=== PATIENT | female | born 1975 | race Caucasian/White ===

== ENCOUNTER 2020-06-14 09:38 | Inpatient (IN) | payer SELFPAY ==
[2020-06-14] VITALS (37 sets, daily range): BP systolic 121–158; BP diastolic 68–95; PULSE 76–134; RESP 12–98; TEMP 36.3–36.7; O2SAT 95–100
[2020-06-14] MEDS: Normal Saline Flush 10 ML SYR IVP ×2 (09:55→22:08)
[2020-06-14 10:12] LABS: Abs Immature Grans 0.02 10^3/uL (0.0-0.06); Absolute Basophil Count 0.04 10^3/uL (0.0-0.2); Absolute Eosinophil Count 0.07 10^3/uL (0.0-0.7); Absolute Lymphocyte Count 0.87 10^3/uL (1.2-3.4); Absolute Monocyte Count 0.56 10^3/uL (0.1-0.8); Absolute Neutrophil Count 4.53 10^3/uL (1.2-6.7); Basophils % 0.7; Eosinophils % 1.1; HCT 41.7 % (36.0-46.0); HGB 14.4 g/dL (11.2-15.7); Immature Grans % 0.3; Lymphocytes % 14.3; MCH 33.9 pg (27.0-33.0); MCHC 34.5 % (32.0-36.0); MCV 98.1 fL (80-95); MPV 9.5 fL (8.0-11.0); Monocytes % 9.2; Neutrophils % 74.4; Nucleated RBC 0 %; Platelet Count 134 10^3/uL (130-400); RBC 4.25 10^6/uL (3.93-5.22); RDW 12.9 % (11.7-14.6); WBC 6.09 10^3/uL (4.4-10.8)
[2020-06-14] MEDS: Normal Saline 1,000 ML 1000 ML IV ×2 (10:15→12:37)
--- NOTE | 2020-06-14 10:15 | DI.US_ITS ---
EXAM: US ABDOMEN LIMITED CLINICAL HISTORY: upper abd pain, r/o cholecystitis TECHNIQUE: Ultrasound abdomen performed using standard protocol. COMPARISON: No exams were available for comparison FINDINGS: LIVER: Increased echogenicity, consistent with fatty infiltration. No focal liver lesions are seen.. GALLBLADDER: No evidence of cholelithiasis. No evidence of wall thickening. No pericholecystic fluid identified. STERN'S SIGN: Negative. BILIARY SYSTEM: No intrahepatic or extrahepatic biliary ductal dilation. KIDNEYS: Right kidney normal in size. No evidence of renal calculi. No evidence of hydronephrosis. N o renal mass or cyst identified. PANCREAS: Thickened, edematous pancreatic head. fluid around the head of the pancreas. ABDOMINAL AORTA AND IVC: Visualized portions normal caliber. IMPRESSION: Findings consistent with pancreatitis. No evidence of gallstones or acute cholecystitis. No biliary dilatation. DATA REPOSITORY:
[2020-06-14] MEDS: Ondansetron 4 MG/2 ML VIAL IVP ×3 (10:17→22:03)
--- NOTE | 2020-06-14 10:20 | W.ED.GENAD ---
Discharge Plan Disposition Patient Disposition: [facility] INPATIENT Condition: Fair Discharge Details Clinical Impression: Acute pancreatitis, Alcohol abuse Primary Care Provider: None,None ED Provider: Kaleigh Jimenez Home Meds and New Rx's Prescriptions: No Action venlafaxine 75 mg Capsule,Extended Release 24hr 75 mg PO DAILY RF: 0 Medical Decision Making 949 -- 45yo F with a history of anxiety presents with epigastric pain and vomiting that started this morning. Heart rate 130s on arrival. Patient appears uncomfortable and is dry heaving vomiting in the room. She has significant epigastric and left upper quadrant tenderness. She also admits to mid back pain. Differential diagnosis includes cholecystitis, biliary colic, pancreatitis, gastritis, PUD, AAA, bowel obstruction. We will place an IV, screening labs, urinalysis, urine test, EKG, CT chest abdomen pelvis, gallbladder ultrasound. She was already given Zofran and is now dry heaving. Will give Phenergan, Pepcid IV, GI cocktail Carafate p.o. 1100 -- Labs reviewed. Normal white blood cell count. Potassium 3.2, will replete. AST 236. ALT 124. Lipase 4379. Patient states she drinks 3 to 4 glasses of wine daily for several years and states she is an alcoholic. She states her last drink was yesterday. We will give a dose of morphine. We will proceed with gallbladder ultrasound and CT to rule out pancreatitis versus gallstone pancreatitis. Patient now states to nursing staff that she drinks liquor throughout the day and wine at nighttime. She now states her last drink was this morning. She was unable to take oral potassium. Will order IV potassium. Will order Ativan as needed for potential for alcohol withdrawal. CT chest negative. CT abdomen pelvis notes findings consistent with pancreatitis with severe hepatic steatosis. No obvious cholelithiasis. 1145 -- Case discussed with hospitalist who accepts patient for admission. 1245 -- patient states pain is returning. Her vitals are within normal limits. She was given 1 dose of Ativan per nursing for potential withdrawal symptoms but denies any complaints of restlessness and she did not appear diaphoretic at this time. Medical Records Medical records reviewed: Yes I reviewed the patient's medical records. Imaging Data Radiologic Study: Radiologist's impression: CT THORAX ABD/PEL CTA CLINICAL HISTORY: upper abd pain, rad to back. TECHNIQUE: Imaging Protocol: Axial computed tomography images with coronal and sagittal reformatted images were created and reviewed CONTRAST MATERIAL: Intravenous: Omnipaque 350 Contrast volume:100 in ml Oral: No COMPARISON: No exams were available for comparison FINDINGS: CHEST: Heart and great vessels: There is no evidence pulmonary emboli or aortic dissection. There are no pleural or pericardial effusions. Adenopathy: None. Lungs: No pulmonary nodules, mass or infiltrate. Bones: Degenerative disc changes midthoracic spine. There is no evidence of spine or rib fracture. ABDOMEN/PELVIS: Liver: Extreme hepatic steatosis. No measurable mass. Gallbladder: No calcified stones, no wall thickening, no abnormal distention.No pericholecystic fluid. Biliary tract: No radiodense calculus, no dilation. Pancreas: Fluid is noted around the pancreas. There is abnormal low density in the head of the pancreas, consistent with pancreatitis. No pseudocyst is seen. There is no pancreatic ductal dilatation. Spleen: Normal. Kidneys: Normal size, contour and axis. No radiodense stones. No hydronephrosis. No masses seen. No perinephric collection. Adrenal glands: No masses seen. Abdominal Aorta: Non-dilated. No atherosclerotic changes. Bowel: No obstruction or bowel wall thickening. Normal quantity of stool. Bladder: No gross wall thickening, focal mass or stones. Peritoneal cavity: Small amount of pelvic fluid. No free air. Bones: No suspicious lesions or fractures. Reproductive organs: Retroverted uterus with IUD in place. Lymph nodes: No pathologically enlarged lymph nodes. Impression: Negative chest CT. Findings consistent with pancreatitis particularly involving the head. Severe hepatic steatosis. Lab Data Lab results reviewed: Yes I reviewed the patient's lab results. Labs: Laboratory Tests Range/Units 06/14/20 06/14/20 06/14/20 09:55 09:55 09:55 WBC (4.4-10.8) 10^3/uL 6.09 RBC (3.93-5.22) 10^6/uL 4.25 Hgb (11.2-15.7) g/dL 14.4 Hct (36.0-46.0) % 41.7 MCV (80-95) fL 98.1 H MCH (27.0-33.0) pg 33.9 H MCHC (32.0-36.0) % 34.5 RDW (11.7-14.6) % 12.9 Plt Count (130-400) 10^3/uL 134 MPV (8.0-11.0) fL 9.5 Immature Gran % 0.3 Neutrophils % 74.4 Lymphocytes % 14.3 Monocytes % 9.2 Eosinophils % 1.1 Basophils % 0.7 Nucleated RBC % % 0 Absolute Neutrophils (1.2-6.7) 10^3/uL 4.53 Absolute Lymphocytes (1.2-3.4) 10^3/uL 0.87 L Absolute Monocytes (0.1-0.8) 10^3/uL 0.56 Absolute Eosinophils (0.0-0.7) 10^3/uL 0.07 Absolute Basophils (0.0-0.2) 10^3/uL 0.04 Sodium (136-145) mmol/L 139 Potassium (3.5-5.1) mmol/L 3.2 L Chloride (98-107) mmol/L 97 L Carbon Dioxide (21.0-32.0) mmol/L 25.8 Anion Gap (3-11) mmol/L 16.2 H BUN (7-18) mg/dL 9 Creatinine (0.55-1.02) mg/dL 0.7 Estimated GFR/1.73 m2 (mL/min/1.73m2) >= 60.00 Glucose (74-106) mg/dL 116 H Calcium (8.5-10.1) mg/dL 10.0 Total Bilirubin (0.2-1.0) mg/dL 0.8 AST (15-37) U/L 236 H ALT (14-59) U/L 124 H Alkaline Phosphatase (46-116) U/L 88 Troponin I (<0.06) ng/mL < 0.05 Total Protein (6.4-8.2) g/dL 8.0 Albumin (3.4-5.0) g/dL 4.1 Lipase (73-393) U/L 4379 H Ethyl Alcohol (<3) mg/dL Range/Units 06/14/20 09:55 WBC (4.4-10.8) 10^3/uL RBC (3.93-5.22) 10^6/uL Hgb (11.2-15.7) g/dL Hct (36.0-46.0) % MCV (80-95) fL MCH (27.0-33.0) pg MCHC (32.0-36.0) % RDW (11.7-14.6) % Plt Count (130-400) 10^3/uL MPV (8.0-11.0) fL Immature Gran % Neutrophils % Lymphocytes % Monocytes % Eosinophils % Basophils % Nucleated RBC % % Absolute Neutrophils (1.2-6.7) 10^3/uL Absolute Lymphocytes (1.2-3.4) 10^3/uL Absolute Monocytes (0.1-0.8) 10^3/uL Absolute Eosinophils (0.0-0.7) 10^3/uL Absolute Basophils (0.0-0.2) 10^3/uL Sodium (136-145) mmol/L Potassium (3.5-5.1) mmol/L Chloride (98-107) mmol/L Carbon Dioxide (21.0-32.0) mmol/L Anion Gap (3-11) mmol/L BUN (7-18) mg/dL Creatinine (0.55-1.02) mg/dL Estimated GFR/1.73 m2 (mL/min/1.73m2) Glucose (74-106) mg/dL Calcium (8.5-10.1) mg/dL Total Bilirubin (0.2-1.0) mg/dL AST (15-37) U/L ALT (14-59) U/L Alkaline Phosphatase (46-116) U/L Troponin I (<0.06) ng/mL Total Protein (6.4-8.2) g/dL Albumin (3.4-5.0) g/dL Lipase (73-393) U/L Ethyl Alcohol (<3) mg/dL 120.3 ECG Data Attestation: I personally reviewed and interpreted this ECG (s) as follows: Interpretation: Rate of 95, sinus, no acute ST elevation or depression. AK 152. QRS 92. QTc 492. HPI General Mode of arrival: ambulatory. Date/Time Provider Initiated Documentation: 06/14/20 09:57. Limitations to Documentation: no limitations. Information obtained by: patient. HPI Narrative: Patient is a 45-year-old female with no history of previous abdominal surgery who presents to the ED with a complaint of epigastric pain and vomiting since this morning. Patient states she felt nauseous with some pain upon awakening this morning but became much worse after going to work. Patient states she drank milk and water this morning but has since vomited this up. She states she has vomited approximately 2 times which is mainly been bile and liquid. She states her pain is burning in the epigastrium but also admits to some mid back pain. She denies any radiation of pain from the abdomen straight through to the back. She denies any radiation of pain up to her chest, shortness of breath, cough, fever, diarrhea or urinary symptoms. She states she had normal bowel movement at work this morning without bleeding. She denies any recent travel, recent biotics or recent known exposure to coronavirus. Related Data Home Medications Medication Instructions Recorded Confirmed venlafaxine 75 mg PO DAILY 06/14/20 06/14/20 Allergies Allergy/AdvReac Type Severity Reaction Status Date / Time No Known Allergies Allergy Unverified 06/14/20 09:41 General Stated Complaint: Abd Prob KIERSTEN: 3 Review of Systems All systems reviewed & are unremarkable except as noted in HPI and below Constitutional Constitutional: Reports as per HPI, Denies chills and Denies fever(s) Eyes Eyes: Denies blurry vision ENT Ears, Nose, Mouth, and Throat: Denies dizziness, Denies sore throat and Denies throat swelling Cardiovascular Cardiovascular: Denies chest pain and Denies dyspnea Respiratory Respiratory: Denies cough and Denies dyspnea Gastrointestinal Gastrointestinal: Reports abdominal pain, Denies diarrhea and Denies vomiting Genitourinary Genitourinary: Denies hematuria and Denies dysuria Musculoskeletal Musculoskeletal: Denies back pain and Denies numbness Integumentary/Breasts Skin/Breast: Denies lesions and Denies rash Neurologic Neurologic: Denies dizziness, Denies localized weakness and Denies numbness Allergic/Immunologic Allergic/Immunologic: Denies throat swelling [facility] Medical History (Updated 06/14/20 @ 12:50 by Kaleigh Jimenez DO) Alcohol abuse Anxiety Surgical History (Updated 06/14/20 @ 11:02 by Kaleigh Jimenez DO) No significant past surgical history Social History Smoking/Tobacco Use Status: Current every day Smoking risk assessment performed?: Yes Alcohol Intake: current Alcohol Intake frequency: 0-2 drinks per day Alcohol type: wine Drug use: Occasionally Substance use type: marijuana Do you feel safe at home: Yes Do you feel safe in your relationship?: Yes Exam Const General: cooperative and no acute distress HENMT Head: normal to inspection Face and sinus: normal facial exam Eyes General: appearance normal, both eyes and all related structures EOM: EOM intact bilaterally Neck Neck: normal visual inspection and No submandibular swelling Lymphatic: no lymphadenopathy noted Chest Chest: normal inspection of the chest and no tenderness Resp Effort & Inspection: normal respiratory effort and able to speak in complete sentences Auscultation: clear to auscultation bilaterally Cardio Rate: regular rate Rhythm: regular rhythm GI Inspection: normal to inspection Palpation: soft, not firm, not rigid and tender in the epigastrum, in the LUQ and in the RUQ Auscultation: normal bowel sounds Skin General skin exam: no rashes or lesions noted Neuro General: patient alert, patient awake and patient oriented x3 Cognition: normal cognition Speech: speech normal Motor: muscle tone normal throughout Sensory Exam: no sensory deficits noted Extrem General: normal to inspection, full ROM, capillary refill normal, no calf tenderness bilaterally and no edema Psych Appearance: grossly normal Mental Status: mental status grossly normal Speech and Movement: speech and movement normal Affect: normal affect Course Vital Signs Vital signs: Vital Signs Temperature 97.9 F 06/14/20 09:41 Pulse 134 H 06/14/20 09:41 Respiratory Rate 98 H 06/14/20 09:41 Blood Pressure 137/91 H 06/14/20 09:41 Pulse Oximetry 99 06/14/20 09:41 Temperature 97.9 F 06/14/20 09:41 Temperature Source Temporal Artery Scan 06/14/20 09:41 Pulse 134 H 06/14/20 09:41 Respiratory Rate 98 H 06/14/20 09:41 Respiratory Effort Non-Labored 06/14/20 09:48 Blood Pressure 137/91 H 06/14/20 09:41 Blood Pressure Position Sitting 06/14/20 09:41 Pulse Oximetry 99 06/14/20 09:41 Oxygen Delivery Method Room Air 06/14/20 09:41 Oxygen Flow Rate 0 06/14/20 09:41 Pain Level 8 06/14/20 10:03 Lab/Test Results Lab/Test Results: Laboratory Tests Range/Units 06/14/20 09:55 WBC (4.4-10.8) 10^3/uL 6.09 RBC (3.93-5.22) 10^6/uL 4.25 Hgb (11.2-15.7) g/dL 14.4 Hct (36.0-46.0) % 41.7 MCV (80-95) fL 98.1 H MCH (27.0-33.0) pg 33.9 H MCHC (32.0-36.0) % 34.5 RDW (11.7-14.6) % 12.9 Plt Count (130-400) 10^3/uL 134 MPV (8.0-11.0) fL 9.5 Immature Gran % 0.3 Neutrophils % 74.4 Lymphocytes % 14.3 Monocytes % 9.2 Eosinophils % 1.1 Basophils % 0.7 Nucleated RBC % % 0 Absolute Neutrophils (1.2-6.7) 10^3/uL 4.53 Absolute Lymphocytes (1.2-3.4) 10^3/uL 0.87 L Absolute Monocytes (0.1-0.8) 10^3/uL 0.56 Absolute Eosinophils (0.0-0.7) 10^3/uL 0.07 Absolute Basophils (0.0-0.2) 10^3/uL 0.04
[2020-06-14 10:28] LABS: ALT 124 U/L (14-59); AST 236 U/L (15-37); Albumin 4.1 g/dL (3.4-5.0); Alkaline Phosphatase 88 U/L (46-116); Anion Gap 16.2 mmol/L (3-11); BUN 9 mg/dL (7-18); Bilirubin, Total 0.8 mg/dL (0.2-1.0); CO2 25.8 mmol/L (21.0-32.0); CREATININE 0.7 mg/dL (0.55-1.02); Chloride 97 mmol/L (98-107); Glucose 116 mg/dL (74-106); Potassium 3.2 mmol/L (3.5-5.1); Sodium 139 mmol/L (136-145)
[2020-06-14 10:45] LABS: Lipase 4379 U/L (73-393)
[2020-06-14] MEDS: Sucralfate 1 GM TAB PO (11:00)
[2020-06-14] MEDS: FAMOTIDINE 20 MG/50 ML BAG 200 MG IVPB (11:04)
--- NOTE | 2020-06-14 11:15 | RT.EKG_ITS ---
APPROVED REPORT Exam: Resting ECG Patient Location: E HR:95 bpm ECG Measurements Heart Rate 95 AXIS HI 152 P 72 QRSd 92 QRS 60 QT 390 T -4 QTc 492 Conclusion Sinus rhythm...normal P axis, V-rate 60- 99 I have reviewed and interpreted ECG and agree with software generated interpretation.
[2020-06-14 11:22] LABS: Troponin I < 0.05 ng/mL (<0.06)
[2020-06-14] MEDS: LORazepam 2 MG/ML VIAL 0.5 MG IVP (11:30)
--- NOTE | 2020-06-14 12:00 | DI.CT_ITS ---
EXAM: CT THORAX ABD/PEL CTA CLINICAL HISTORY: upper abd pain, rad to back. TECHNIQUE: Imaging Protocol: Axial computed tomography images with coronal and sagittal reformatted images were created and reviewed CONTRAST MATERIAL: Intravenous: Omnipaque 350 Contrast volume:100 in ml Oral: No COMPARISON: No exams were available for comparison FINDINGS: CHEST: Heart and great vessels: There is no evidence pulmonary emboli or aortic dissection. There are no pleural or pericardial effusions. Adenopathy: None. Lungs: No pulmonary nodules, mass or infiltrate. Bones: Degenerative disc changes midthoracic spine. There is no evidence of spine or rib fracture. ABDOMEN/PELVIS: Liver: Extreme hepatic steatosis. No measurable mass. Gallbladder: No calcified stones, no wall thickening, no abnormal distention.No pericholecystic fluid . Biliary tract: No radiodense calculus, no dilation. Pancreas: Fluid is noted around the pancreas. There is abnormal low density in the head of the pancr eas, consistent with pancreatitis. No pseudocyst is seen. There is no pancreatic ductal dilatation. Spleen: Normal. Kidneys: Normal size, contour and axis. No radiodense stones. No hydronephrosis. No masses seen. No perinephric collection. Adrenal glands: No masses seen. Abdominal Aorta: Non-dilated. No atherosclerotic changes. Bowel: No obstruction or bowel wall thickening. Normal quantity of stool. Bladder: No gross wall thickening, focal mass or stones. Peritoneal cavity: Small amount of pelvic fluid. No free air. Bones: No suspicious lesions or fractures. Reproductive organs: Retroverted uterus with IUD in place. Lymph nodes: No pathologically enlarged lymph nodes. Impression: Negative chest CT. Findings consistent with pancreatitis particularly involving the head. Severe hepatic steatosis. RADIATION DOSE DELIVERED: 867.3mGy.cm Total DLP DATA REPOSITORY: All CT scans at this facility are submitted to the National Radiology Data Registry (NRDR) Dose Index Registry (DIR) with the [employer] (ACR). RADIATION OPTIMIZATION: All CT scans at this facility use at least one of these dose optimization te chniques: automated exposure control; mA and/or kV adjustment per patient size (includes targeted exa ms where dose is matched to clinical indication); or iterative reconstruction.
[2020-06-14] MEDS: Omnipaque 350 MG/ML 100 ML BTL IJ (12:11)
[2020-06-14] MEDS: Normal Saline - Diluent 50 ML VIAL IV (12:11)
[2020-06-14] MEDS: POTASSIUM CHLORIDE 20 MEQ/100 ML BAG 50 MEQ IVPB (12:37)
[2020-06-14 12:44] LABS: ETHANOL BLOOD 120.3 mg/dL (<3)
[2020-06-14 13:01] LABS: C-Reactive Protein 0.22 mg/dL (0.0-0.3)
[2020-06-14 13:01] LABS: Source Nasal/Nares
[2020-06-14 13:07] LABS: Bilirubin Negative (Negative); Blood Negative (Negative); Clarity Clear (Clear); Glucose Negative (Negative); Ketones 80 mg/dL (Negative); Leukocyte Esterase Negative (Negative); Nitrite Negative (Negative); Specific Gravity 1.015 (1.005-1.025)
[2020-06-14 13:17] LABS: Triglyceride 86 mg/dL (<150)
[2020-06-14 13:24] LABS: *AMPHETAMINES SCREEN URINE Negative (Negative); *BARBITURATES SCREEN URINE Negative (Negative); *BENZODIAZEPINES SCREEN URINE Negative (Negative); Cannabinoids THC Positive (Negative); Cocaine Screen,Urine Negative (Negative); METHADONE URINE SCREEN Negative (Negative); OPIATES URINE SCREEN Positive (Negative)
[2020-06-14 13:29] LABS: Tricyclic Antidepressants Negative (Negative)
[2020-06-14 13:29] LABS: Procalcitonin < 0.1 ng/mL
[2020-06-14] MEDS: MULTIVITAMIN 10 ML, THIAMINE 100 MG, FOLIC ACID 1 MG in DEXTROSE 5%-0.45% SALINE 1,000 ML 200 ML IV (14:18)
[2020-06-14 15:23] LABS: COVID-19 PCR Negative (Negative)
--- NOTE | 2020-06-14 16:23 | HPE_ITS ---
Date of service: 06/14/20 Time of Service: 16:00 Assessment and Plan Assessment and plan (1) Acute alcoholic pancreatitis: Status: Acute Assessment and plan: Continue aggressive IVF. NPO. Monitor CRP. No role for abx at this time. Serial physical exams. Monitor in the ICU. Consider surgical consult. Pain control. (2) Alcoholic hepatitis without ascites: Status: Acute Assessment and plan: Checking INR to estimate discriminant function score. (3) Alcohol withdrawal: Status: Acute Assessment and plan: I do not think the patient is a good candidate for phenobarbital as we are suspecting alcoholic hepatitis. For now we will treat her with ativan per CIWA scale. Monitor in the ICU. Banana bag/ativan. Discussion re AA/rehab began today. (4) Alcohol intoxication: Status: Acute Assessment and plan: we will be careful with benzodiazepines to ensure the patient is not oversedated. (5) Hepatic steatosis: Status: Acute Assessment and plan: New diagnosis. May be the explanation behind the transaminitis. (6) Alcoholic ketoacidosis: Status: Acute Assessment and plan: IV hydration. (7) Hypokalemia: Status: Acute Assessment and plan: Repleted. Check mag. (8) DVT prophylaxis: Status: Acute Assessment and plan: SC lovenox (9) Discharge planning issues: Status: Acute Assessment and plan: Full code Admit to the ICU. Total Critical Care Time 45 minutes. History of Present Illness History of Present Illness Chief Complaint: abdominal pain, nausea, vomiting since this morning Narrative: Ms Hall is a 45 year old female with PMHx of anxiety and alcohol abuse, who last drank this morning and denies h/o alcohol withdrawal other than shaking and, specifically, alcohol withdrawal seizures, who presented to [facility] ED today c/o epigastri pain, nausea, and vomiting since this morning. Her ED workup revealed acute pancreatitis, especially in the head of the pancreas, and severe hepatic steatosis. She does have transaminitis. THere was no evidence of cholelithiasis/choledocholithiasis. Triglyceride level was normal. The patient showed signs of alcohol withdrawal in the ED and was medicated with IV ativan. Hospitalists were asked to take over care. Review of Systems All systems reviewed & are unremarkable except as noted in HPI and below [facility] Medical History (Updated 06/14/20 @ 17:04 by Janie Fishman MD) Alcohol abuse Anxiety Eczema Surgical History (Updated 06/14/20 @ 11:02 by Kaleigh Jimenez DO) No significant past surgical history Family History (Updated 06/14/20 @ 16:29 by Janie Fishman MD) Father Heart disease [place] at age of 68 Maternal Grandmother Cancer ovarian cancer Maternal Grandfather Cancer unknown primary Social History (Updated 06/14/20 @ 16:29 by Janie Fishman MD) Smoking/Tobacco Use Status: Current every day Smoking risk assessment performed?: Yes Alcohol Intake: current Alcohol Intake frequency: 3 or more drinks per day Alcohol type: wine and other Counseling given: Yes Counseling provided: provider counseling and support program Drug use: Occasionally Substance use type: marijuana Details: past cocaine Do you feel safe at home: Yes Do you feel safe in your relationship?: Yes Meds Home Medications and Allergies Allergies Allergy/AdvReac Type Severity Reaction Status Date / Time No Known Allergies Allergy Unverified 06/14/20 09:41 Home Medications Medication Instructions Recorded Confirmed Type venlafaxine 75 mg PO DAILY 06/14/20 06/14/20 History Exam Narrative Exam Narrative: General: Pleasant very tremulous middle-aged female who smells ketotic, A&Ox3, cooperative, appears uncomfortable. Dry heaving. Neurological: A&Ox3, tremulous, no focal deficits Psychiatric: Appropriate speech pattern/content Skin: Eczematous patches HEENT: Atraumatic, normocephalic, EOMI, dry MM, clear oropharynx, no subman dibular or cervical lymphadenopathy, no goiter or JVD Cardiovascular: RRR, mildly tachycardic Lungs: CTAB Gastrointestinal: soft, very tender in epigastrium Genitourinary: deferred Extremities: no edema BLEs Results Imaging Additional studies: US abdomen: Findings consistent with pancreatitis. No evidence of gallstones or acute cholecystitis. No biliary dilatation. CT chest/abdomen/pelvis: Negative chest CT. Findings consistent with pancreatitis particularly involving the head. Severe hepatic steatosis. Labs Result diagrams: 06/14/20 09:55 06/14/20 09:55 Labs: Laboratory Results - last 24 hr 06/14/20 06/14/20 06/14/20 09:55 09:55 09:55 WBC 6.09 RBC 4.25 Hgb 14.4 Hct 41.7 MCV 98.1 H MCH 33.9 H MCHC 34.5 RDW 12.9 Plt Count 134 MPV 9.5 Immature Gran % 0.3 Neutrophils % 74.4 Lymphocytes % 14.3 Monocytes % 9.2 Eosinophils % 1.1 Basophils % 0.7 Nucleated RBC % 0 Absolute Neutrophils 4.53 Absolute Lymphocytes 0.87 L Absolute Monocytes 0.56 Absolute Eosinophils 0.07 Absolute Basophils 0.04 Sodium 139 Potassium 3.2 L Chloride 97 L Carbon Dioxide 25.8 Anion Gap 16.2 H BUN 9 Creatinine 0.7 Estimated GFR/1.73 m2 >= 60.00 Glucose 116 H Calcium 10.0 Total Bilirubin 0.8 AST 236 H ALT 124 H Alkaline Phosphatase 88 Troponin I < 0.05 C-Reactive Protein Total Protein 8.0 Albumin 4.1 Triglycerides Lipase 4379 H Procalcitonin Urine Color Urine Clarity Urine pH Ur Specific [place] Urine Protein Urine Ketones Urine Blood Urine Nitrite Urine Bilirubin Urine Urobilinogen Ur Leukocyte Esterase Urine Glucose Urine Opiates Screen Urine Methadone Screen Ur Barbiturates Screen Ur Tricyclics Screen Ur Amphetamines Screen U Benzodiazepines Scrn Urine Cocaine Screen Ur THC Screen Ethyl Alcohol COVID-19 Source SARS-CoV-2 (PCR) 06/14/20 06/14/20 06/14/20 09:55 09:55 09:55 WBC RBC Hgb Hct MCV MCH MCHC RDW Plt Count MPV Immature Gran % Neutrophils % Lymphocytes % Monocytes % Eosinophils % Basophils % Nucleated RBC % Absolute Neutrophils Absolute Lymphocytes Absolute Monocytes Absolute Eosinophils Absolute Basophils Sodium Potassium Chloride Carbon Dioxide Anion Gap BUN Creatinine Estimated GFR/1.73 m2 Glucose Calcium Total Bilirubin AST ALT Alkaline Phosphatase Troponin I C-Reactive Protein 0.22 Total Protein Albumin Triglycerides 86 Lipase Procalcitonin < 0.1 Urine Color Urine Clarity Urine pH Ur Specific [place] Urine Protein Urine Ketones Urine Blood Urine Nitrite Urine Bilirubin Urine Urobilinogen Ur Leukocyte Esterase Urine Glucose Urine Opiates Screen Urine Methadone Screen Ur Barbiturates Screen Ur Tricyclics Screen Ur Amphetamines Screen U Benzodiazepines Scrn Urine Cocaine Screen Ur THC Screen Ethyl Alcohol 120.3 COVID-19 Source SARS-CoV-2 (PCR) 06/14/20 06/14/20 06/14/20 12:50 12:55 12:55 WBC RBC Hgb Hct MCV MCH MCHC RDW Plt Count MPV Immature Gran % Neutrophils % Lymphocytes % Monocytes % Eosinophils % Basophils % Nucleated RBC % Absolute Neutrophils Absolute Lymphocytes Absolute Monocytes Absolute Eosinophils Absolute Basophils Sodium Potassium Chloride Carbon Dioxide Anion Gap BUN Creatinine Estimated GFR/1.73 m2 Glucose Calcium Total Bilirubin AST ALT Alkaline Phosphatase Troponin I C-Reactive Protein Total Protein Albumin Triglycerides Lipase Procalcitonin Urine Color Yellow Urine Clarity Clear Urine pH 6.0 Ur Specific [place] 1.015 Urine Protein Negative Urine Ketones 80 H Urine Blood Negative Urine Nitrite Negative Urine Bilirubin Negative Urine Urobilinogen 1.0 H Ur Leukocyte Esterase Negative Urine Glucose Negative Urine Opiates Screen Positive A Urine Methadone Screen Negative Ur Barbiturates Screen Negative Ur Tricyclics Screen Negative Ur Amphetamines Screen Negative U Benzodiazepines Scrn Negative Urine Cocaine Screen Negative Ur THC Screen Positive A Ethyl Alcohol COVID-19 Source Nasal/nares SARS-CoV-2 (PCR) Negative Last Vital Signs Temp 36.6 C 06/14/20 14:50 Pulse 82 06/14/20 14:50 Resp 12 06/14/20 16:15 BP 138/85 06/14/20 14:50 Pulse Ox 100 06/14/20 14:50 COVID-19 Screening Have you, or household traveled for leisure in last 14 days?: No Had IN PERSON contact w/suspected or confirmed C-19 person: No
[2020-06-14] MEDS: Ketorolac 30 MG/ML VIAL IVP (16:28)
[2020-06-14] MEDS: LORazepam 1 MG TAB PO/SL ×2 (16:28→19:59)
[2020-06-14] MEDS: Pantoprazole 40 MG VIAL IVP (16:29)
[2020-06-14] MEDS: Enoxaparin 40 MG/0.4 ML SYR SC (16:30)
[2020-06-14] MEDS: Venlafaxine 37.5 MG CAPCR 75 MG PO (16:55)
[2020-06-14 17:48] LABS: INR 1.1 (0.9-1.1); Prothrombin Time 10.8 sec (9.3-11.0)
[2020-06-14 18:51] LABS: Magnesium 1.4 mg/dL (1.8-2.4)
[2020-06-14] MEDS: MORPHine 4 MG/ML SYR IVP (20:00)
[2020-06-14] MEDS: Docusate Sodium 100 MG CAP PO (20:00)
[2020-06-15] VITALS (28 sets, daily range): BP systolic 113–145; BP diastolic 63–89; PULSE 92–109; RESP 13–28; TEMP 36.2–36.5; O2SAT 92–99
[2020-06-15] MEDS: Ketorolac 30 MG/ML VIAL IVP ×3 (00:02→20:49)
[2020-06-15] MEDS: Normal Saline Flush 10 ML SYR IVP ×3 (00:02→18:08)
[2020-06-15] MEDS: Normal Saline 1,000 ML 200 ML IV ×2 (00:19→18:29)
[2020-06-15] MEDS: Ondansetron 4 MG/2 ML VIAL IVP (04:40)
[2020-06-15] MEDS: MORPHine 4 MG/ML SYR IVP (04:40)
[2020-06-15] MEDS: LORazepam 1 MG TAB PO/SL ×2 (04:41→08:17)
[2020-06-15 06:29] LABS: Lactate 0.6 mmol/L (0.6-1.4)
[2020-06-15 06:32] LABS: Abs Immature Grans 0.01 10^3/uL (0.0-0.06); Absolute Basophil Count 0.02 10^3/uL (0.0-0.2); Absolute Eosinophil Count 0.07 10^3/uL (0.0-0.7); Absolute Neutrophil Count 4.38 10^3/uL (1.2-6.7); Basophils % 0.4; Eosinophils % 1.3; HCT 35.5 % (36.0-46.0); Immature Grans % 0.2; Lymphocytes % 7.3; MCH 33.7 pg (27.0-33.0); MCHC 33.8 % (32.0-36.0); MCV 99.7 fL (80-95); Monocytes % 10.9; Neutrophils % 79.9; Nucleated RBC 0 %; RBC 3.56 10^6/uL (3.93-5.22); RDW-SD 48.6 fL; WBC 5.48 10^3/uL (4.4-10.8)
[2020-06-15 06:49] LABS: Hemoglobin A1C 4.9 % (<5.7)
[2020-06-15 06:52] LABS: ALT 72 U/L (14-59); AST 84 U/L (15-37); Albumin 3.1 g/dL (3.4-5.0); Alkaline Phosphatase 65 U/L (46-116); Anion Gap 7.9 mmol/L (3-11); BUN 6 mg/dL (7-18); Bilirubin, Direct 0.4 mg/dL (0.0-0.2); C-Reactive Protein 2.51 mg/dL (0.0-0.3); CO2 28.1 mmol/L (21.0-32.0); CREATININE 0.5 mg/dL (0.55-1.02); Calcium 7.8 mg/dL (8.5-10.1); Chloride 101 mmol/L (98-107); Glucose 94 mg/dL (74-106); Magnesium 1.1 mg/dL (1.8-2.4); Potassium 3.4 mmol/L (3.5-5.1); Sodium 137 mmol/L (136-145); TSH (W/Ref FT4) 1.37 uIU/mL (0.36-3.74); Total Protein 6.1 g/dL (6.4-8.2)
[2020-06-15 06:55] LABS: Lipase 4421 U/L (73-393)
[2020-06-15 06:59] LABS: Platelet Count 86 10^3/uL (130-400)
[2020-06-15 07:00] LABS: Diff Comment Diff Reviewed; Hypochromasia 2+
[2020-06-15 07:35] LABS: Folate 5.9 ng/mL (8.6-20.0); Vitamin B12 782 pg/mL (193-986)
[2020-06-15] MEDS: Docusate Sodium 100 MG CAP PO ×2 (08:17→20:50)
[2020-06-15] MEDS: Venlafaxine 37.5 MG CAPCR 75 MG PO (08:17)
[2020-06-15] MEDS: Folic Acid 1 MG TAB PO (08:17)
[2020-06-15] MEDS: POTASSIUM CHLORIDE 20 MEQ/100 ML BAG 50 MEQ IVPB ×2 (08:21→12:05)
[2020-06-15] MEDS: Magnesium Chloride 64 MG TABCR PO ×2 (08:21→20:50)
--- NOTE | 2020-06-15 10:01 | INITIAL_ITS ---
- If Service Date Differs Date of service: 06/15/20 Time of Service: 10:01 Care Management Initial Assess REASON FOR HOSPITALIZATION:: Acute Alcoholic pancreatitis, alcohol w/d PAST MEDICAL HISTORY/PAST SURGICAL HISTORY:: Medical History. Alcohol abuse. Anxiety. Eczema. Surgical History. No significant past surgical history PREVIOUS FUNCTIONAL STATUS/SOCIAL/FAMILY SUPPORTS:: Sofiya lives in [place], [place] with her s/o, Roberto. Her father lives nearby and is supportive. She works at [employer] in [facility]. She is independent at baseline. CURRENT FUNCTIONAL STATUS:: Sofiya was resting when CM met with her. She was easily awaken, and sat up to have a conversation with CM. She reported that she is not feeling well today. CM discussed options to assist her with alcohol cessation, which she declined at this time. CM stated that we can go over options tomorrow if she is feeling better. CM asked about her insurance, which she stated that her employer does not offer it. As Sofiya lives in [place], our resources are not relevant to her, but CM will look into options for assistance in [place]. CM will continue to follow. ADVANCE DIRECTIVES:: None on file. CM will offer forms. Has patient been provided with info about the portal/API?: Yes Did the patient sign up for the portal?: No CODE STATUS:: Full Code INSURANCE COVERAGE / FINANCIAL ISSUES:: Self Pay CURRENT HOME/COMMUNITY SERVICES/EQUIPMENT:: No current services or equipment. PRIMARY CARE PHYSICIAN:: Justin Harper MD POTENTIAL DISCHARGE NEEDS:: options for alcohol cessation, gymnastics coach or instructor, follow up appointments PATIENT/FAMILY EDUCATION NEEDS:: Review discharge instructions regarding activity levels and medications, discussion of self care needs including ask me three. ANTICIPATED BARRIERS TO DISCHARGE:: None identified at this time. TRANSPORTATION:: Sofiya will transport via private vehicle. PLAN:: Sofiya is being monitored at ICU level of care. Once she is medically cleared, she will return home. CM will continue to offer support and resources for alcohol cessation. She will follow up with her PCP and discharge plan of care. CM will continue to follow.
[2020-06-15] MEDS: MAGNESIUM SULFATE 4 GM/100 ML BAG IVPB (10:04)
--- NOTE | 2020-06-15 11:51 | PGE_ITS ---
Date of Service Date of service: 06/15/20 Time of Service: 11:51 Assessment and Plan Assessment and plan (1) Acute alcoholic pancreatitis: Status: Acute Assessment and plan: No improvement clinically. Continue aggressive IVF. NPO. Continue pain control, antiemetics, and encourage IS Monitor CRP. Continue to monitor in the ICU. (2) Alcohol withdrawal: Status: Acute Assessment and plan: LFTs better. Will transition to phenobarbital. Monitor in the ICU. Banana bag daily. Care management will provide recovery options. (3) Hepatic steatosis: Status: Chronic Assessment and plan: New diagnosis. May be the explanation behind the transaminitis. (4) Alcoholic hepatitis without ascites: Status: Ruled-out Assessment and plan: Transaminitis better. INR nml. Bili nml. (5) Alcohol intoxication: Status: Acute Assessment and plan: As above (6) Alcoholic ketoacidosis: Status: Resolved Assessment and plan: Continue IV hydration. (7) Hypokalemia: Status: Acute Assessment and plan: Repleted. Also replete mag. (8) Hypomagnesemia: Status: Acute Assessment and plan: Replete and recheck in am. (9) DVT prophylaxis: Status: Acute Assessment and plan: SC lovenox (10) Discharge planning issues: Status: Acute Assessment and plan: Full code Keep in ICU. Subjective Subjective Interval history since last seen: NATHALIE 16 this am; received 3 mg of PO ativan, and this was effective. She reports at least 7/10 pain in her epigastrium. She is nauseated. She is dizzy laying in bed. Denies chest pain, shortness of breath. Exam Narrative Exam Narrative: General: Somnolent middle-aged female, easily arousable, A&Ox3, does not appear comfortable HEENT: EOMI, dry MM Cardiovascular: RRR, mildly tachycardic Lungs: CTAB Gastrointestinal: soft, very tender in epigastrium Genitourinary: deferred Extremities: no edema BLEs Objective Last Vital Signs Temp 36.4 C L 06/15/20 11:44 Pulse 96 H 06/15/20 07:48 Resp 18 06/15/20 11:44 BP 142/87 H 06/15/20 07:48 Pulse Ox 98 06/15/20 11:44 Laboratory Results - last 24 hr 06/14/20 06/14/20 06/14/20 09:55 09:55 09:55 WBC RBC Hgb Hct MCV MCH MCHC RDW Plt Count MPV Immature Gran % Neutrophils % Lymphocytes % Monocytes % Eosinophils % Basophils % Nucleated RBC % Absolute Neutrophils Absolute Lymphocytes Absolute Monocytes Absolute Eosinophils Absolute Basophils RBC Morphology Hypochromasia PT INR VBG Lactate Sodium Potassium Chloride Carbon Dioxide Anion Gap BUN Creatinine Estimated GFR/1.73 m2 Glucose Hemoglobin A1c Calcium Magnesium Total Bilirubin Conjugated Bilirubin AST ALT Alkaline Phosphatase C-Reactive Protein 0.22 Total Protein Albumin Triglycerides 86 Lipase Vitamin B12 Folate Procalcitonin < 0.1 TSH Urine Color Urine Clarity Urine pH Ur Specific Half Way Urine Protein Urine Ketones Urine Blood Urine Nitrite Urine Bilirubin Urine Urobilinogen Ur Leukocyte Esterase Urine Glucose Urine Opiates Screen Urine Methadone Screen Ur Barbiturates Screen Ur Tricyclics Screen Ur Amphetamines Screen U Benzodiazepines Scrn Urine Cocaine Screen Ur THC Screen Ethyl Alcohol 120.3 COVID-19 Source SARS-CoV-2 (PCR) 06/14/20 06/14/20 06/14/20 09:55 12:50 12:55 WBC RBC Hgb Hct MCV MCH MCHC RDW Plt Count MPV Immature Gran % Neutrophils % Lymphocytes % Monocytes % Eosinophils % Basophils % Nucleated RBC % Absolute Neutrophils Absolute Lymphocytes Absolute Monocytes Absolute Eosinophils Absolute Basophils RBC Morphology Hypochromasia PT INR VBG Lactate Sodium Potassium Chloride Carbon Dioxide Anion Gap BUN Creatinine Estimated GFR/1.73 m2 Glucose Hemoglobin A1c Calcium Magnesium 1.4 L Total Bilirubin Conjugated Bilirubin AST ALT Alkaline Phosphatase C-Reactive Protein Total Protein Albumin Triglycerides Lipase Vitamin B12 Folate Procalcitonin TSH Urine Color Yellow Urine Clarity Clear Urine pH 6.[address] 1.015 Urine Protein Negative Urine Ketones 80 H Urine Blood Negative Urine Nitrite Negative Urine Bilirubin Negative Urine Urobilinogen 1.0 H Ur Leukocyte Esterase Negative Urine Glucose Negative Urine Opiates Screen Urine Methadone Screen Ur Barbiturates Screen Ur Tricyclics Screen Ur Amphetamines Screen U Benzodiazepines Scrn Urine Cocaine Screen Ur THC Screen Ethyl Alcohol COVID-19 Source Nasal/nares SARS-CoV-2 (PCR) Negative 06/14/20 06/14/20 06/15/20 12:55 17:03 06:22 WBC RBC Hgb Hct MCV MCH MCHC RDW Plt Count MPV Immature Gran % Neutrophils % Lymphocytes % Monocytes % Eosinophils % Basophils % Nucleated RBC % Absolute Neutrophils Absolute Lymphocytes Absolute Monocytes Absolute Eosinophils Absolute Basophils RBC Morphology Hypochromasia PT 10.8 INR 1.1 VBG Lactate Sodium 137 Potassium 3.4 L Chloride 101 Carbon Dioxide 28.1 Anion Gap 7.9 BUN 6 L Creatinine 0.5 L Estimated GFR/1.73 m2 >= 60.00 Glucose 94 Hemoglobin A1c Calcium 7.8 L Magnesium 1.1 L Total Bilirubin 1.0 Conjugated Bilirubin 0.4 H AST 84 H ALT 72 H Alkaline Phosphatase 65 C-Reactive Protein 2.51 H Total Protein 6.1 L Albumin 3.1 L Triglycerides Lipase 4421 H Vitamin B12 782 Folate 5.9 L Procalcitonin TSH 1.37 Urine Color Urine Clarity Urine pH Ur Specific Half Way Urine Protein Urine Ketones Urine Blood Urine Nitrite Urine Bilirubin Urine Urobilinogen Ur Leukocyte Esterase Urine Glucose Urine Opiates Screen Positive A Urine Methadone Screen Negative Ur Barbiturates Screen Negative Ur Tricyclics Screen Negative Ur Amphetamines Screen Negative U Benzodiazepines Scrn Negative Urine Cocaine Screen Negative Ur THC Screen Positive A Ethyl Alcohol COVID-19 Source SARS-CoV-2 (PCR) 06/15/20 06/15/20 06/15/20 06:22 06:22 06:22 WBC 5.48 RBC 3.56 L Hgb 12.0 D Hct 35.5 L MCV 99.7 H MCH 33.7 H MCHC 33.8 RDW 13.0 Plt Count 86 L MPV 10.0 Immature Gran % 0.2 Neutrophils % 79.9 Lymphocytes % 7.3 Monocytes % 10.9 Eosinophils % 1.3 Basophils % 0.4 Nucleated RBC % 0 Absolute Neutrophils 4.38 Absolute Lymphocytes 0.40 L Absolute Monocytes 0.60 Absolute Eosinophils 0.07 Absolute Basophils 0.02 RBC Morphology See below Hypochromasia 2+ PT INR VBG Lactate 0.6 Sodium Potassium Chloride Carbon Dioxide Anion Gap BUN Creatinine Estimated GFR/1.73 m2 Glucose Hemoglobin A1c 4.9 Calcium Magnesium Total Bilirubin Conjugated Bilirubin AST ALT Alkaline Phosphatase C-Reactive Protein Total Protein Albumin Triglycerides Lipase Vitamin B12 Folate Procalcitonin TSH Urine Color Urine Clarity Urine pH Ur Specific Half Way Urine Protein Urine Ketones Urine Blood Urine Nitrite Urine Bilirubin Urine Urobilinogen Ur Leukocyte Esterase Urine Glucose Urine Opiates Screen Urine Methadone Screen Ur Barbiturates Screen Ur Tricyclics Screen Ur Amphetamines Screen U Benzodiazepines Scrn Urine Cocaine Screen Ur THC Screen Ethyl Alcohol COVID-19 Source SARS-CoV-2 (PCR)
[2020-06-15] MEDS: MULTIVITAMIN 10 ML, THIAMINE 100 MG, FOLIC ACID 1 MG in DEXTROSE 5%-0.45% SALINE 1,000 ML 150 ML IV (12:05)
[2020-06-15] MEDS: PHENobarbital 130 MG/ML VIAL IVP ×3 (13:49→20:52)
[2020-06-15] MEDS: Pantoprazole 40 MG VIAL IVP (18:08)
[2020-06-16] VITALS (64 sets, daily range): BP systolic 90–145; BP diastolic 60–86; PULSE 93–159; RESP 12–34; TEMP 36–36.6; O2SAT 95–99
[2020-06-16] MEDS: PHENobarbital 130 MG/ML VIAL IVP ×5 (01:14→16:48)
[2020-06-16] MEDS: Normal Saline 1,000 ML 200 ML IV ×3 (04:13→21:32)
[2020-06-16 06:54] LABS: Abs Immature Grans 0.03 10^3/uL (0.0-0.06); Absolute Basophil Count 0.02 10^3/uL (0.0-0.2); Absolute Eosinophil Count 0.14 10^3/uL (0.0-0.7); Absolute Lymphocyte Count 0.58 10^3/uL (1.2-3.4); Absolute Monocyte Count 0.74 10^3/uL (0.1-0.8); Basophils % 0.3; Eosinophils % 1.9; HCT 33.2 % (36.0-46.0); HGB 11.3 g/dL (11.2-15.7); Immature Grans % 0.4; Lymphocytes % 7.9; MCH 34.1 pg (27.0-33.0); MCV 100.3 fL (80-95); MPV 10.4 fL (8.0-11.0); Monocytes % 10.1; Neutrophils % 79.4; Nucleated RBC 0 %; RBC 3.31 10^6/uL (3.93-5.22); RDW 12.8 % (11.7-14.6); RDW-SD 47.2 fL; WBC 7.31 10^3/uL (4.4-10.8)
[2020-06-16 07:14] LABS: ALT 44 U/L (14-59); AST 39 U/L (15-37); Albumin 2.6 g/dL (3.4-5.0); Alkaline Phosphatase 63 U/L (46-116); Anion Gap 7.4 mmol/L (3-11); BUN 2 mg/dL (7-18); Bilirubin, Direct 0.4 mg/dL (0.0-0.2); Bilirubin, Total 0.9 mg/dL (0.2-1.0); C-Reactive Protein 13.14 mg/dL (0.0-0.3); CO2 24.6 mmol/L (21.0-32.0); CREATININE 0.5 mg/dL (0.55-1.02); Calcium 7.4 mg/dL (8.5-10.1); Chloride 102 mmol/L (98-107); Glucose 99 mg/dL (74-106); Potassium 3.2 mmol/L (3.5-5.1); Sodium 134 mmol/L (136-145); Total Protein 5.5 g/dL (6.4-8.2)
[2020-06-16 07:21] LABS: Diff Comment Diff Reviewed; Platelet Count 79 10^3/uL (130-400); RBC Morphology Normal
[2020-06-16 07:43] LABS: Folate 5.8 ng/mL (8.6-20.0)
--- NOTE | 2020-06-16 08:24 | W.PM.PROGNOT ---
Date of Service Date of service: 06/16/20 Time of Service: 12:43 Assessment and Plan Assessment and plan (1) Acute alcoholic pancreatitis: Status: Acute Assessment and plan: Starting to improve. Start clears. Continue pain control, antiemetics, and encourage IS Monitor CRP. Continue to monitor in the ICU. (2) Alcohol withdrawal: Status: Acute Assessment and plan: On phenobarbital, still actively withdrawing. Monitor in the ICU. May have to add prn antipsychotics for symptom management. Banana bag daily. Care management will provide recovery options. (3) Hepatic steatosis: Status: Chronic Assessment and plan: New diagnosis. May be the explanation behind the transaminitis. (4) Alcoholic hepatitis without ascites: Status: Ruled-out Assessment and plan: Transaminitis better. INR nml. Bili nml. (5) Alcohol intoxication: Status: Acute Assessment and plan: As above (6) Alcoholic ketoacidosis: Status: Resolved Assessment and plan: Continue IV hydration. (7) Hypokalemia: Status: Acute Assessment and plan: Repleted. Also replete mag. (8) Hypomagnesemia: Status: Acute Assessment and plan: Replete and recheck in am. (9) DVT prophylaxis: Status: Acute Assessment and plan: SC lovenox (10) Discharge planning issues: Status: Acute Assessment and plan: Full code Keep in ICU. Total Critical Care Time 40 minutes. Subjective Subjective Interval history since last seen: Sofiya states that she thinks her abdominal pain is getting better. 3/10 maybe. Denies dizziness, chest pain, shortness of breath, nausea. CIWA up to 35 last night. Got phenobarb x 4 total (260 mg dose). Hallucinating overnight, but not now. Extremely unsteady. COnfused overnight and pulled out IV. She is A&Ox3 now. Urine orange. 650 cc/[address] in low 100s, 130s to 150s. Exam Narrative Exam Narrative: General: Somnolent middle-aged female, easily arousable, A&Ox3 (thinks it's June 15), tremulous, but looks more comfortable, not actively hallucinating. HEENT: EOMI, dry MM Cardiovascular: RRR, mildly tachycardic Lungs: CTAB/diminished. Does work with IS with me in the room Gastrointestinal: soft, very tender in epigastrium Extremities: trace edema BLEs Objective Last Vital Signs Temp 36.5 C 06/16/20 04:00 Pulse 108 H 06/16/20 06:03 Resp 26 H 06/16/20 06:03 BP 124/72 06/16/20 06:03 Pulse Ox 95 06/16/20 04:00 Laboratory Results - last 24 hr 06/16/20 06/16/20 06:20 06:20 WBC 7.31 D RBC 3.31 L Hgb 11.3 Hct 33.2 L MCV 100.3 H MCH 34.1 H MCHC 34.0 RDW 12.8 Plt Count 79 L MPV 10.4 Immature Gran % 0.4 Neutrophils % 79.4 Lymphocytes % 7.9 Monocytes % 10.1 Eosinophils % 1.9 Basophils % 0.3 Nucleated RBC % 0 Absolute Neutrophils 5.80 Absolute Lymphocytes 0.58 L Absolute Monocytes 0.74 Absolute Eosinophils 0.14 Absolute Basophils 0.02 RBC Morphology Normal Sodium 134 L Potassium 3.2 L Chloride 102 Carbon Dioxide 24.6 Anion Gap 7.4 BUN 2 L Creatinine 0.5 L Estimated GFR/1.73 m2 >= 60.00 Glucose 99 Calcium 7.4 L Magnesium 2.0 Total Bilirubin 0.9 Conjugated Bilirubin 0.4 H AST 39 H ALT 44 Alkaline Phosphatase 63 C-Reactive Protein 13.14 H Total Protein 5.5 L Albumin 2.6 L Folate 5.8 L
[2020-06-16] MEDS: Folic Acid 1 MG TAB PO (09:57)
[2020-06-16] MEDS: Docusate Sodium 100 MG CAP PO ×2 (09:57→21:33)
[2020-06-16] MEDS: Venlafaxine 37.5 MG CAPCR 75 MG PO (09:57)
[2020-06-16] MEDS: Potassium Chloride 20 MEQ TABCR 40 MEQ PO (09:57)
[2020-06-16] MEDS: Magnesium Chloride 64 MG TABCR PO ×2 (09:57→21:33)
[2020-06-16] MEDS: Normal Saline Flush 10 ML SYR IVP ×2 (10:31→16:48)
[2020-06-16] MEDS: MULTIVITAMIN 10 ML, THIAMINE 100 MG, FOLIC ACID 1 MG in DEXTROSE 5%-0.45% SALINE 1,000 ML 200 ML IV (10:33)
--- NOTE | 2020-06-16 10:35 | NUR.NOTE ---
Nursing Note: Bed Monitor/Strip placed under patient and bed alarm on as patient is not oriented.
--- NOTE | 2020-06-16 10:42 | W.NUTCONSULT ---
Date of service: 06/16/20 Time of Service: 10:42 Nutritional Consult ASSESSMENT: 45 year old female admitted to ICU for ETOH withdrawl with pancreatitis and hepatic steatosis. BMI wnl. Long standing history of nicotine and alcohol abuse. Poor nutritional status prior to admittion. NPO x 3 days. Recommend consider TPN if NPO > 5 days. Supplemented with MVI, Folic acid and thiamin for repletion. NUTRITIONAL DIAGNOSIS: moderate malnutrition in view of impaired nutrient utilization and inadequate micro and macro nutrient intake to support healthy body weight INTERVENTION: currently NPO Consider TPN if unable to advance diet by 06/19/20 MONITORING AND EVALUATION: labs, weight Time Spent in Nutritional Counseling and Treatment: 0
--- NOTE | 2020-06-16 14:05 | CMPROGNOTE_ITS ---
- If Service Date Differs Date of service: 06/16/20 Time of Service: 14:05 Care Management Progress Note S/O: Sofiya was sleeping soundly when CM attempted to visit with her. Per RN, she is being medicated with phenobarbital for her active withdrawal, and may require PRN medications for symptom management. She remains in the ICU, being monitored closely. Her diet was advanced to clears today. Sofiya was resistant to rehab, but may be willing to talk to a disaster recovery consultant. CM located a [facility] application online, and will present it to Sofiya prior to discharge. CM will continue to follow. A: Sofiya is a 45 year old female admitted to [facility] on 06/16/20 with acute alcoholic pancreatitis, alcohol w/d. P: Sofiya remains in the ICU being treated and monitored for her alcohol withdrawal. She will likely return home when medically cleared, with no services. Her s/o, Roberto will drive her home via private vehicle. She will follow up with her PCP and discharge plan of care. CM will continue to follow.
[2020-06-16] MEDS: Pantoprazole 40 MG VIAL IVP (16:47)
[2020-06-16 20:40] LABS: HIT ELISA <0.075 OD (<0.400); HIT Interpretation Negative (Negative)
[2020-06-16] MEDS: QUEtiapine 25 MG TAB PO (21:33)
[2020-06-16] MEDS: Haloperidol 1 MG TAB 2 MG PO (22:47)
[2020-06-17] VITALS (167 sets, daily range): BP systolic 103–143; BP diastolic 41–89; PULSE 79–103; RESP 11–29; TEMP 36.2–36.3; O2SAT 97–100
--- NOTE | 2020-06-17 00:18 | PGE_ITS ---
Date of Service Date of service: 06/17/20 Time of Service: 00:18 Assessment and Plan Assessment and plan (1) Alcohol withdrawal: Start date: 06/17/20 Status: Acute Assessment and plan: This is a 45-year-old lady admitted for alcoholic pancreatitis but now with severe alcohol withdrawal and delirium. She did respond to oral Haldol and started on oral Seroquel with continued Haldol if needed. Patient now has in four-point restraints as needed for safety of patient and staff. She did take a staff member in the abdomen. Continue antipsychotics with phenobarbital having been maximized and benzodiazepines having side effects of oversedation. Continue pain control. Qualifiers: Complication of substance-induced condition: with delirium Qualified Code(s): F10.231 - Alcohol dependence with withdrawal delirium (2) Agitation: Start date: 06/17/20 Status: Acute Assessment and plan: Continue Haldol as needed with Seroquel as ordered. Hospitalist will reevaluate antipsychotic regimen in the morning. Patient is released from four-point restraints and sleeping comfortably at this time. Subjective Subjective Interval history since last seen: This is a 45-year-old female patient who is having severe alcohol withdrawa with pancreatitis, alcohol appearing to have been resolving though her delusions and violent behavior have persisted despite maximizing phenobarbital dosing now with 1 dose of Seroquel and had a strong count and a caregiver taking them in the abdomen. She has been placed in four- point restraint and given 2 mg of Haldol p.o. She did sleep with this medical therapy. At the time I saw the patient he was calm and sleeping with restraints having been on most of the night and then released. She was checked frequently with loosening of restraints during the night. Exam Narrative Exam Narrative: General: Patient is sleeping currently her left side is in no acute distress. Skin: Warm and dry. HEENT: Normocephalic with slightly coarsened facial features. Neck: Supple. Heart: Regular rate and rhythm. Lungs: Fair aeration. Abdomen: Soft with normal contour and not examined with patient this week. Extremities: Without cyanosis or pitting edema. Neuro: No focalizing motor deficits. Objective Last Vital Signs Temp 36.4 C L 06/16/20 21:00 Pulse 99 H 06/17/20 00:00 Resp 16 06/17/20 00:10 BP 107/73 06/17/20 00:00 Pulse Ox 99 06/16/20 14:13 Laboratory Results - last 24 hr 06/16/20 06/16/20 06:20 06:20 WBC 7.31 D RBC 3.31 L Hgb 11.3 Hct 33.2 L MCV 100.3 H MCH 34.1 H MCHC 34.0 RDW 12.8 Plt Count 79 L MPV 10.4 Immature Gran % 0.4 Neutrophils % 79.4 Lymphocytes % 7.9 Monocytes % 10.1 Eosinophils % 1.9 Basophils % 0.3 Nucleated RBC % 0 Absolute Neutrophils 5.80 Absolute Lymphocytes 0.58 L Absolute Monocytes 0.74 Absolute Eosinophils 0.14 Absolute Basophils 0.02 RBC Morphology Normal Sodium 134 L Potassium 3.2 L Chloride 102 Carbon Dioxide 24.6 Anion Gap 7.4 BUN 2 L Creatinine 0.5 L Estimated GFR/1.73 m2 >= 60.00 Glucose 99 Calcium 7.4 L Magnesium 2.0 Total Bilirubin 0.9 Conjugated Bilirubin 0.4 H AST 39 H ALT 44 Alkaline Phosphatase 63 C-Reactive Protein 13.14 H Total Protein 5.5 L Albumin 2.6 L Folate 5.8 L
--- NOTE | 2020-06-17 07:50 | CMPROGNOTE_ITS ---
Care Management Progress Note S/O: Sofiya continues to have severe alcohol withdrawal noted this morning to become delirious requiring anti-psychotic medication and physical restraints for a period of time. CM will continue to follow. A: Sofiya is a 45 year old female admitted to [facility] on 06/16/20 with acute alcoholic pancreatitis, alcohol w/d. P: Sofiya remains in the ICU being treated and monitored for her alcohol withdrawal. She will likely return home when medically cleared, with no services. Sofiya was resistant to rehab, but may be willing to talk to a disaster recovery analyst. CM located a [facility] application online, and will present it to Sofiya prior to discharge. Her s/o, Roberto will drive her home via private vehicle. She will follow up with her PCP and discharge plan of care. CM will continue to follow.
[2020-06-17] MEDS: MULTIVITAMIN 10 ML, THIAMINE 100 MG, FOLIC ACID 1 MG in DEXTROSE 5%-0.45% SALINE 1,000 ML 200 ML IV (10:01)
[2020-06-17] MEDS: Venlafaxine 37.5 MG CAPCR 75 MG PO (10:07)
[2020-06-17] MEDS: Folic Acid 1 MG TAB PO (10:07)
[2020-06-17] MEDS: Magnesium Chloride 64 MG TABCR PO ×2 (10:07→19:57)
[2020-06-17] MEDS: Docusate Sodium 100 MG CAP PO ×2 (10:07→19:56)
[2020-06-17] MEDS: QUEtiapine 25 MG TAB PO ×2 (10:07→19:57)
[2020-06-17] MEDS: Nicotine 21 MG/24 HR PATCH TD (10:10)
[2020-06-17] MEDS: Normal Saline Flush 10 ML SYR IVP ×2 (10:14→19:57)
[2020-06-17 10:20] LABS: Abs Immature Grans 0.02 10^3/uL (0.0-0.06); Absolute Basophil Count 0.03 10^3/uL (0.0-0.2); Absolute Eosinophil Count 0.24 10^3/uL (0.0-0.7); Absolute Lymphocyte Count 0.81 10^3/uL (1.2-3.4); Absolute Monocyte Count 0.77 10^3/uL (0.1-0.8); Absolute Neutrophil Count 4.23 10^3/uL (1.2-6.7); Basophils % 0.5; Eosinophils % 3.9; HCT 36.1 % (36.0-46.0); HGB 12.4 g/dL (11.2-15.7); Immature Grans % 0.3; Lymphocytes % 13.3; MCHC 34.3 % (32.0-36.0); MCV 98.9 fL (80-95); Monocytes % 12.6; Neutrophils % 69.4; Nucleated RBC 0 %; Platelet Count 122 10^3/uL (130-400); RBC 3.65 10^6/uL (3.93-5.22); RDW 12.4 % (11.7-14.6); RDW-SD 45.2 fL
[2020-06-17 10:25] LABS: Anion Gap 9.3 mmol/L (3-11); BUN 2 mg/dL (7-18); CO2 24.7 mmol/L (21.0-32.0); CREATININE 0.5 mg/dL (0.55-1.02); Calcium 8.1 mg/dL (8.5-10.1); Chloride 101 mmol/L (98-107); Glucose 85 mg/dL (74-106); Magnesium 1.7 mg/dL (1.8-2.4); Potassium 3.2 mmol/L (3.5-5.1); Sodium 135 mmol/L (136-145)
--- NOTE | 2020-06-17 12:56 | W.PM.PROGNOT ---
Date of Service Date of service: 06/17/20 Time of Service: 13:03 Assessment and Plan Assessment and plan (1) Acute alcoholic pancreatitis: Status: Acute Assessment and plan: Now resolved; can advance diet as tolerated. (2) Alcohol withdrawal: Status: Acute Assessment and plan: She has received the highest dosage of phenobarbital that is recommended. PRN Seroquel ordered yesterday; will add scheduled Seroquel. Cont CIWA scoring. Qualifiers: Complication of substance-induced condition: with delirium Qualified Code(s): F10.231 - Alcohol dependence with withdrawal delirium (3) Alcoholic hepatitis without ascites: Status: Ruled-out Assessment and plan: ALT normalized and AST nearing normal range. Avoid Etoh. (4) Hypomagnesemia: Status: Acute Assessment and plan: Mg+ was as low as 1.1 Corrected to 2.0 and now marginally low at 1.7. She is taking MgCl 64mg po BID. Give 2g Mg Sulfate now. Monitor. (5) Hypokalemia: Status: Acute Assessment and plan: K+ is 3.2 today. Oral repletion initiated. Monitor. Subjective Subjective Patient reports: tolerating liquids well and afebrile; denies shortness of breath Interval history since last seen: Pt somnolent this AM. Received po Seroquel, then po Haldol last PM d/t agitation. Exam Const Orientation: not awake and other (somnolent; arouses briefly to simuli.) Resp Effort & Inspection: normal respiratory effort Auscultation: clear to auscultation bilaterally Cardio Rate: regular rate Rhythm: regular rhythm Heart Sounds: S1 normal and S2 normal Neuro General: moves all extremities Extrem General: no pedal edema Objective Last Vital Signs Temp 36.3 C L 06/17/20 08:52 Pulse 90 06/17/20 10:17 Resp 16 06/17/20 10:17 BP 130/79 06/17/20 10:17 Pulse Ox 100 06/17/20 10:17 Laboratory Results - last 24 hr 06/15/20 06/17/20 06/17/20 06:22 10:10 10:10 WBC 6.10 RBC 3.65 L Hgb 12.4 Hct 36.1 MCV 98.9 H MCH 34.0 H MCHC 34.3 RDW 12.4 Plt Count 122 L MPV 10.0 Immature Gran % 0.3 Neutrophils % 69.4 Lymphocytes % 13.3 Monocytes % 12.6 Eosinophils % 3.9 Basophils % 0.5 Nucleated RBC % 0 Absolute Neutrophils 4.23 Absolute Lymphocytes 0.81 L Absolute Monocytes 0.77 Absolute Eosinophils 0.24 Absolute Basophils 0.03 Sodium 135 L Potassium 3.2 L Chloride 101 Carbon Dioxide 24.7 Anion Gap 9.3 BUN 2 L Creatinine 0.5 L Estimated GFR/1.73 m2 >= 60.00 Glucose 85 Calcium 8.1 L Magnesium 1.7 L Hep-Induced Plt Ab Bonita <0.075 Heparin-PF4 Ab Inhibit Not Applicable Heparin-PF4 Ab Interp Negative Heparin-PF4 Ab Comment See comment
[2020-06-17] MEDS: Potassium Chloride 20 MEQ TABCR PO ×2 (14:08→19:56)
[2020-06-17] MEDS: Pantoprazole 40 MG VIAL IVP (17:47)
[2020-06-18] VITALS (10 sets, daily range): BP systolic 110–129; BP diastolic 66–80; PULSE 80–100; RESP 9–20; TEMP 36.2–36.5; O2SAT 97–99
[2020-06-18 07:08] LABS: ALT 33 U/L (14-59); AST 21 U/L (15-37); Albumin 2.5 g/dL (3.4-5.0); Alkaline Phosphatase 71 U/L (46-116); Anion Gap 10.2 mmol/L (3-11); BUN 2 mg/dL (7-18); Bilirubin, Total 0.7 mg/dL (0.2-1.0); CO2 24.8 mmol/L (21.0-32.0); CREATININE 0.5 mg/dL (0.55-1.02); Calcium 8.6 mg/dL (8.5-10.1); Chloride 104 mmol/L (98-107); Glucose 91 mg/dL (74-106); Magnesium 1.5 mg/dL (1.8-2.4); Sodium 139 mmol/L (136-145); Total Protein 5.9 g/dL (6.4-8.2)
--- NOTE | 2020-06-18 07:52 | PHA.REVIEW ---
Pharmacy Admission Review - Admission Clinical Review (Last Updated 06/14/20 @ 16:30 by Janie Fishman MD) Agitation (Acute) Hypomagnesemia (Acute) Alcohol intoxication (Acute) Discharge planning issues (Acute) DVT prophylaxis (Acute) Hypokalemia (Acute) Alcohol withdrawal (Acute) Acute alcoholic pancreatitis (Acute) Acute pancreatitis (Acute) No Known Allergies Allergy (Unverified 06/14/20 09:41) Height 5 ft 6 in Weight 62.5 kg - Renal Dosing Renal Dosing: BUN 2 mg/dL (7-18) L 06/18/20 06:05 Creatinine 0.5 mg/dL (0.55-1.02) L 06/18/20 06:05 Medications needing adjustments: Reviewed (CRCL ~82ML/MIN) - Anticoagulation Anticoagulation: Hgb 12.4 g/dL (11.2-15.7) 06/17/20 10:10 Hct 36.1 % (36.0-46.0) 06/17/20 10:10 Plt Count 122 10^3/uL (130-400) L 06/17/20 10:10 INR 1.1 (0.9-1.1) 06/14/20 17:03 Creatinine 0.5 mg/dL (0.55-1.02) L 06/18/20 06:05 DVT Prohphylaxis: Intervened (will ask at provider) Therapeutic Anticoagulation: N/A - Opiate Usage Evaluate Pain Scale/Pains Meds: Reviewed Scheduled Bowel Reg ordered if on Opiates?: Yes - Relevant Labs Sodium 139 mmol/L (136-145) 06/18/20 06:05 Potassium 3.0 mmol/L (3.5-5.1) L 06/18/20 06:05 Chloride 104 mmol/L (98-107) 06/18/20 06:05 Magnesium 1.5 mg/dL (1.8-2.4) L 06/18/20 06:05 C-Reactive Protein 13.14 mg/dL (0.0-0.3) H 06/16/20 06:20 Electrolytes, C-Reactive P, ESR: Reviewed (PO KCL) - DM Control DM Control: Glucose 91 mg/dL (74-106) 06/18/20 06:05 Hemoglobin A1c 4.9 % (<5.7) 06/15/20 06:22 Insulin Dosing: N/A - Heart Failure/NE Heart Failure/NE: Troponin I < 0.05 ng/mL (<0.06) 06/14/20 09:55 EF%, JUAN's, B-Blockers, Diuretics: N/A - BP Control BP Control: Blood Pressure 111/67 Blood Pressure 110/66 Blood Pressure 121/76 Blood Pressure 123/80 Blood Pressure 122/79 Blood Pressure 136/88 If elevated: N/A - IV to PO Switch IV Medications: Reviewed - Home Meds Home Med List reviewed: Reviewed - Current meds Current Medication Order Review: Reviewed - Comments Comments/Follow Ups: has had full dose phenobarbital. starting to take PO
--- NOTE | 2020-06-18 08:40 | CMDISCH_ITS ---
LACE Index Scoring Tool - Questions: Length of Stay (in days): 3 Acuity (Admit via E.D.?): Yes E.D. Visits: 1 - Answers: Total Score: 7 Risk of Readmission: Low Risk Care Management Discharge Reason for Hospitalization: Acute Alcoholic pancreatitis, alcohol w/d Discharge Plan: Sofiya will return home when ready per MD. She will follow up w ith her PCP and plan of care as precribed. Sobriety resources reviewed; Sofiya verbalizes intention of abstaining from alcohol and outreaching if needed. She will transport via private vehicle with her significant other, Roberto. Patient/Family Education Needs: Review discharge instructions, discuss Ask Me Three.
[2020-06-18] MEDS: Magnesium Chloride 64 MG TABCR PO (09:09)
[2020-06-18] MEDS: Docusate Sodium 100 MG CAP PO (09:10)
[2020-06-18] MEDS: Folic Acid 1 MG TAB PO (09:10)
[2020-06-18] MEDS: MAGNESIUM SULFATE 2 GM/50 ML BAG IVPB (09:10)
[2020-06-18] MEDS: Thiamine 100 MG TAB PO (09:10)
[2020-06-18] MEDS: Venlafaxine 37.5 MG CAPCR 75 MG PO (09:10)
[2020-06-18] MEDS: Normal Saline Flush 10 ML SYR IVP (09:17)
[2020-06-18] MEDS: Potassium Chloride 20 MEQ TABCR 40 MEQ PO ×2 (09:20→11:42)
--- NOTE | 2020-06-18 09:41 | W.PM.DS.N ---
Date of service: 06/18/20 Time of Service: 09:41 DS: Diagnosis Discharge Diagnosis (1) Acute alcoholic pancreatitis: Status: Acute (2) Alcohol withdrawal: Status: Acute (3) Alcoholic hepatitis without ascites: Status: Ruled-out (4) Hypomagnesemia: Status: Acute (5) Hypokalemia: Status: Acute Discharge Plan Disposition Patient Disposition: HOME Condition: Good Discharge Details Reason For Visit: ACUTE ALCOHOLIC PANCREATITIS, ALCOHOL WITHDRAWAL Admit Date/Time: 06/14/20 12:33 Admit Provider: Janie Fishman Attending Provider: Janie Fishman Primary Care Provider: None,None Hospital Course Hospital Course: Ms Hall is a 45 year old female with PMHx of anxiety and alcohol abuse, who last drank on the morning of admission. She denied a h/o alcohol withdrawal other than shaking and, specifically, alcohol withdrawal seizures. She presented to [facility] ED with the complaint of epigastric pain, nausea, and vomiting since the morning. Her ED workup revealed acute pancreatitis, especially in the head of the pancreas, and severe hepatic steatosis. Lipase and Transaminases were elevated. No evidence of cholelithiasis/choledocholithiasis. Triglyceride level was normal. The patient showed signs of alcohol withdrawal in the ED and was medicated with IV ativan. Hospitalists were asked to take over care. The following day she was started on a phenobarbital protocol for alcohol withdrawal. She was maintained on an NPO status. She was administered the maximum dose of phenobarbital recommended and then was given Seroquel prn for withdrawal symptoms. She also did recieve a single dose of po haldol for a period of agitation. On the 3rd day of the admission she was no longer in withdrawal, her pancreatitis pain resolved and her diet was advanced. Her mental status returned to her baseline and she tolerated a regular diet. She spoke with care management regarding options for treatment of her alcohol abuse syndrome. She decline any formal outpatient or inpatient treatment. She feels she has a strong support system and a plan was in place for her to reach out for assistance should she relapse and start drinking again. Her K+ and Mg+ required replacement and suggestions given for intake of foods that would help correcting and maintaining those levels. F/U with PCP in 1-2 weeks. Home Meds and New Rx's Prescriptions: New nicotine 21 mg/24 hr Patch 24 Hour 21 mg transdermal DAILY Qty: 0 RF: 0 folic acid 1 mg Tablet 1 mg PO DAILY Qty: 0 RF: 0 thiamine mononitrate (vit B1) [Vitamin B-1 (mononitrate)] 100 mg Tablet 100 mg PO DAILY Qty: 0 RF: 0 magnesium oxide 500 mg capsule 500 mg PO QHS Qty: 30 RF: 0 Continued venlafaxine 75 mg Capsule,Extended Release 24hr 75 mg PO DAILY RF: 0 Discharge Instructions Instructions: Pancreatitis (GEN), Hypokalemia (DC), Hypomagnesemia (DC) Activity:: Activity as Tolerated Equipment/Supplies:: No Equipment Needed Diet:: As Tolerated Discharge Orders Discharge Orders: Discharge Order (Routine); Ordered 06/18/20 Ordered By: Ignacio Faith DS: Summary Time Spent with Patient providing and/or coordinating discharge services: Greater than 30 minutes Status at Discharge Functional status at discharge: independent ambulation Overall status at discharge: patient is back to baseline Mental Status: mental status grossly normal Speech and Movement: speech and movement normal Mood: congruent mood Affect: normal affect Exam Narrative Exam Narrative: Patient sitting up in bed. Pleasant and conversant. Const General: cooperative and no acute distress Nutritional Appearance: average body habitus Orientation: alert and oriented x3 Neck Neck: full ROM and no JVD Resp Effort & Inspection: normal respiratory effort Auscultation: clear to auscultation bilaterally Cardio Rate: regular rate Rhythm: regular rhythm Heart Sounds: S1 normal and S2 normal GI Palpation: soft and nontender Psych Appearance: grossly normal Mental Status: mental status grossly normal Speech and Movement: speech and movement normal Mood: congruent mood Affect: normal affect DS: Data Vitals/I&O Vitals and I&O: Vital Signs Temperature 36.2 C L 06/18/20 04:17 Temperature Source Temporal Artery Scan 06/18/20 04:17 Pulse 100 H 06/18/20 06:01 Pulse 100 H 06/18/20 06:01 Respiratory Rate 17 06/18/20 06:01 Respiratory Effort Non-Labored 06/18/20 04:17 Respiratory Depth Normal 06/18/20 04:17 Respiratory Pattern Normal 06/18/20 04:17 Blood Pressure 111/67 06/18/20 06:01 Blood Pressure Mean 78 06/18/20 06:01 Blood Pressure Position Sitting 06/17/20 11:10 Pulse Oximetry 99 06/18/20 04:17 Oxygen Delivery Method Room Air 06/18/20 04:17 Oxygen Flow Rate 0 06/18/20 04:17 Pain Level 0 06/18/20 04:17 Intake & Output 06/17/20 06/17/20 06/18/20 11:59 23:59 11:59 Intake Total 1000 / 3101.2 2101.2 / 3101.2 Output Total 900 / 3020 2120 / 3020 950 / 950 Balance 100 / 81.2 -18.8 / 81.2 -950 / -950 Weight 63.3 g 62.5 kg Intake: IV 1000 / 1.2 1021.2 / 1.2 Oral 1080 / 1080 Output: Urine 900 / 3020 2120 / 3020 950 / 950 Other: Urine Color Straw Yellow Urine Appearance Clear Clear Urine Odor Strong Normal Comment Patient voiding in bedside commode. Patient voiding in bedside commode. Patient voiding in bedside commode. Voiding Methods Bedside Commode Bedside Commode Bedside Commode Data Completed and Pending Labs on day of discharge: Labs from last 24 hours 06/18/20 06/17/20 06/17/20 06:05 10:10 10:10 WBC 6.10 RBC 3.65 L Hgb 12.4 Hct 36.1 MCV 98.9 H MCH 34.0 H MCHC 34.3 RDW 12.4 Plt Count 122 L MPV 10.0 Immature Gran % 0.3 Neutrophils % 69.4 Lymphocytes % 13.3 Monocytes % 12.6 Eosinophils % 3.9 Basophils % 0.5 Nucleated RBC % 0 Absolute Neutrophils 4.23 Absolute Lymphocytes 0.81 L Absolute Monocytes 0.77 Absolute Eosinophils 0.24 Absolute Basophils 0.03 Sodium 139 135 L Potassium 3.0 L 3.2 L Chloride 104 101 Carbon Dioxide 24.8 24.7 Anion Gap 10.2 9.3 BUN 2 L 2 L Creatinine 0.5 L 0.5 L Estimated GFR/1.73 m2 >= 60.00 >= 60.00 Glucose 91 85 Calcium 8.6 8.1 L Magnesium 1.5 L 1.7 L Total Bilirubin 0.7 AST 21 ALT 33 Alkaline Phosphatase 71 Total Protein 5.9 L Albumin 2.5 L [facility] Medical History Alcohol abuse Anxiety Eczema Surgical History No significant past surgical history Family History Father Heart disease [place] at age of 68 Maternal Grandmother Cancer ovarian cancer Maternal Grandfather Cancer unknown primary Social History Smoking/Tobacco Use Status: Current every day Smoking risk assessment performed?: Yes Alcohol Intake: current Alcohol Intake frequency: 3 or more drinks per day Alcohol type: wine and other Counseling given: Yes Counseling provided: provider counseling and support program Drug use: Occasionally Substance use type: marijuana Details: past cocaine Do you feel safe at home: Yes Do you feel safe in your relationship?: Yes
== END 2020-06-18 13:50 | disposition home or self-care (01) | DRG 439 ==
LOC: ER 12:53 → ICU 15:10
PROVIDERS: Family Medicine; Admitting Provider Internal Medicine; Emergency Provider Physician Assistant; Visit Provider Internal Medicine
DX: K85.20 Alcohol induced acute pancreatitis without necrosis or infection (principal); F10.131 Alcohol abuse with withdrawal delirium; E87.2 Acidosis; F10.129 Alcohol abuse with intoxication, unspecified; K76.0 Fatty (change of) liver, not elsewhere classified; K70.10 Alcoholic hepatitis without ascites; E87.6 Hypokalemia; E83.42 Hypomagnesemia; Y90.6 Blood alcohol level of 120-199 mg/100 ml; F41.9 Anxiety disorder, unspecified; F17.210 Nicotine dependence, cigarettes, uncomplicated; Z78.1 Physical restraint status
CPT/HCPCS: 36415; 74177; 80048; 80053; 80076; 80307; 81025; 83690; 84145; 86022; 87635; 93005; 96361; 96365; 96366; 96367; 96375; 96376; 99232; 99239; 99285; 99291; 99357; J1650; 76705; 80320; 81003; 82607; 82746; 83036; 83605; 83735; 84443; 84478; 84484; 85025; 85610; 86140; 93010; 94667; 99356; J1885; J2060; J2270; J2405; J2560; J3475; J3480; J3490

== ENCOUNTER 2020-11-27 11:43 | Emergency (ER) | payer SELFPAY ==
[2020-11-27 12:02] VITALS: BP 123/87; PULSE 104; RESP 14; TEMP 36.9; O2SAT 97
--- NOTE | 2020-11-27 12:09 | ED.GENADUL_ITS ---
Discharge Plan Disposition Patient Disposition: HOME Condition: Improving Discharge Details Clinical Impression: Side pain, Back pain Primary Care Provider: None,None ED Provider: Kaleigh Jimenez Home Meds and New Rx's Prescriptions: New methocarbamol 500 mg tablet 500 mg PO Q6H PRN (Reason: muscle spasm) Qty: 14 RF: 0 prednisone 20 mg tablet See Rx Instructions .ROUTE .COMPLEX Qty: 18 RF: 0 Continued venlafaxine 75 mg Capsule,Extended Release 24hr 75 mg PO DAILY RF: 0 magnesium oxide 500 mg capsule 500 mg PO QHS Qty: 30 RF: 0 Discharge Instructions Instructions: Sciatica (ED), Back Pain (ED) Additional Instructions: Your lab work and imaging including ultrasound and CT scan were reassuring and negative for any acute significant findings today. Your symptoms may be due to to a musculoskeletal etiology such as sciatica. Alternate ice and heat to the affected area(s) several times daily for 20 minutes at a time. Alternate tylenol and motrin as needed and directed for pain. Prescriptions for steroids and muscle relaxers were sent electronically to your pharmacy. Take your next dose of the steroids tomorrow. Start the muscle relaxer tonight as needed and directed for muscle spasm or pain. Call your primary care doctor tomorrow to schedule follow-up appointment for reevaluation within the next week. Return immediately to the emergency department if you develop any worsening or new concerning symptoms. Discharge Data Discharge Date/Time-TO BE ENTERED AT DEPARTURE: 11/27/20 18:52 Discharge Physician: Kaleigh Jimenez Medical Decision Making <Rosa Camacho MD - Last Filed: 12/09/20 08:38> Sofiya Hall is a 45-year-old woman with a history of alcohol use disorder who presented to the emergency department with right-sided abdominal/pelvic pain since this morning in the setting of right low back pain for the past few days. On exam patient is well and nontoxic-appearing. She appears to be uncomfortable with movement/change in position. Tenderness palpation right lower quadrant/right pelvic area. Concern for ovarian pathology versus appendicitis versus sciatica versus other. Exam/history at this time is not consistent with sepsis, mesenteric ischemia, cauda equina syndrome, pelvic inflammatory disease, acute aortic pathology. Plan for IV placement, IV morphine, screening labs, UA/UPT, pelvic ultrasound if negative will obtain CT abdomen/pelvis. Will monitor and reassess. Labs reviewed, no leukocytosis, normal AG. Pt signed out to Dr. Jimenez at time of shift change with pelvic US, CT if US negative, dispo pending. Medical Records Medical records reviewed: Yes I reviewed the patient's medical records. Imaging Data Radiologic Study: Attestation: I personally reviewed and interpreted this imaging study as follows: Lab Data Lab results reviewed: Yes I reviewed the patient's lab results. <Kaleigh Jimenez, - Last Filed: 11/27/20 18:49> 1500 -- please see Dr. Camacho's note for initial presentation, exam, and plan. Case endorsed to f/u on CT abdomen and pelvis and final disposition. Patient assessed by me at bedside. She has reproducible pain in her right hip and buttock with range of motion at her right hip. There is no limitation of motion, crepitus, cellulitis or evidence of trauma. She has no abdominal tenderness to palpation. There is no rigidity or guarding. She has neurovascular intact without focal deficits. Labs and pelvic ultrasound reviewed and unremarkable. Suspect most likely sciatica versus lumbar/hip strain sprain rather than abdominal abnormality. Will give a dose of IV Toradol, Decadron, p.o. Valium. CT abdomen and pelvis negative for acute significant findings. 1835 -- Patient reassessed and she feels much better and is requesting to go home. She was ambulatory around the ED and appears in no acute distress. Discussed that her symptoms could potentially be due to sciatica or another musculoskeletal etiology. She is advised to alternate ice and heat, Tylenol and Motrin. We will also give prescription for muscle box and steroids. Advised to follow up with the primary care doctor for re-evaluation. Usual and customary return precautions given prior to discharge. Medical Records Medical records reviewed: Yes I reviewed the patient's medical records. Imaging Data Radiologic Study: Radiologist's impression: CT Abdomen And Pelvis With Contrast Exam date and time: 11/27/2020 4:46 PM Age: 45 years old Clinical indication: Abdominal pain; Localized; Right lower quadrant (rlq); Patient HX: Rlq pain; Per PT: Since this morning TECHNIQUE: Imaging protocol: Computed tomography of the abdomen and pelvis with contrast. COMPARISON: CT THORAX ABD/PEL CTA 06/14/2020 12:00 PM FINDINGS: Lungs: The visualized lung bases are within normal limits. Heart: The visualized portions of the heart and pericardium are unremarkable. Liver: There is fatty infiltration of the liver. Gallbladder and bile ducts: The gallbladder is within normal limits. Pancreas: The pancreas is within normal limits. Spleen: The spleen is unremarkable. Adrenal glands: The adrenal glands are within normal limits. Kidneys and ureters: The kidneys are within normal limits. Stomach and bowel: There are feces within the colon which could represent some degree of constipation. Appendix: The appendix is visualized and is within normal limits. Intraperitoneal space: Unremarkable. No free air. No significant fluid collection. Vasculature: Unremarkable. No abdominal aortic aneurysm. Lymph nodes: No enlarged lymph nodes. Urinary bladder: The urinary bladder is not very distended with urine. The wall appears slightly thickened. This could be due to its under distention. Reproductive: There is an IUD within the uterus. The ovaries appear within normal limits for a patient of this age. Bones/joints: There are degenerative changes of the thoracic and lumbar spines. Soft tissues: There is umbilical jewelry. IMPRESSION: Fatty infiltration of the liver. Suspect some degree of constipation. IUD in place. Under distended urinary bladder. US Abdomen Complete Exam date and time: 11/27/2020 2:21 PM Age: 45 years old Clinical indication: Other: Mid, right sided abdominal pain; Pelvic pain TECHNIQUE: Imaging protocol: Real-time ultrasound of the abdomen with image documentation. COMPARISON: [place] US ABDOMEN LIMITED 06/14/2020 12:05 PM FINDINGS: Liver: The liver is echogenic consistent with fatty infiltration. The liver is normal in size measuring 15 cm in length. Gallbladder: The gallbladder is unremarkable. There is no sonographic Gtz sign. The gallbladder wall is not thickened. There is no pericholecystic fluid. Common bile duct: There is no evidence of intrahepatic or extrahepatic biliary ductal dilatation. The common bile duct is normal measuring 4 mm. Pancreas: The visualized portions of the pancreas appear unremarkable. Right kidney: The right kidney is within normal limits measuring 10.0 cm in length. Left kidney: The left kidney is unremarkable measuring 10.1 cm in length. Spleen: The spleen is within normal limits measuring 7.6 cm in length. Aorta: The visualized portions of the aorta appeared within normal limits. Inferior vena cava: The visualized portions of the IVC appear unremarkable. IMPRESSION: Fatty infiltration of the liver. US Pelvis Complete, Transabdominal and US Pelvis, Transvaginal Exam date and time: 11/27/2020 2:21 PM Age: 45 years old Clinical indication: Other: Mid, right sided abdominal pain; Pelvic pain TECHNIQUE: Imaging protocol: Real-time transabdominal and transvaginal pelvic ultrasound (complete) with image documentation. Transvaginal imaging was used for better evaluation of the endometrium, adnexa, and/or cervix. COMPARISON: [place] US ABDOMEN LIMITED 06/14/2020 12:05 PM FINDINGS: Uterus/cervix: Transvaginally there is an IUD in place. Transvaginally the uterus measured 7.0 x 3.4 x 5.1 cm. Transvaginally the endometrium measured 7 mm. Right adnexa: Transvaginally the right ovary measures 3.0 x 1.2 x 1.1 cm. Transvaginally there is normal vascular flow to the right ovary. Left adnexa: Transvaginally the left ovary measured 2.5 x 1.4 x 1.3 cm. Transvaginally there is normal vascular flow to the left ovary. Intraperitoneal space: Transvaginally there is no free fluid in the cul-de-sac. Urinary bladder: The transabdominal approach is limited due to a nondistended urinary bladder. The urinary bladder appeared within normal limits. IMPRESSION: IUD in place otherwise unremarkable ultrasound examination of the pelvis performed both transabdominally transvaginally. Lab Data Lab results reviewed: Yes I reviewed the patient's lab results. Labs: Laboratory Tests Range/Units 11/27/20 11/27/20 11/27/20 14:30 14:30 17:35 WBC (4.4-10.8) 10^3/uL 4.63 RBC (3.93-5.22) 10^6/uL 4.37 Hgb (11.2-15.7) g/dL 14.4 Hct (36.0-46.0) % 42.7 MCV (80-95) fL 97.7 H MCH (27.0-33.0) pg 33.0 MCHC (32.0-36.0) % 33.7 RDW (11.7-14.6) % 13.2 Plt Count (130-400) 10^3/uL 194 MPV (8.0-11.0) fL 9.4 Immature Gran % 0.0 Neutrophils % 57.1 Lymphocytes % 30.7 Monocytes % 9.9 Eosinophils % 1.7 Basophils % 0.6 Nucleated RBC % % 0 Absolute Neutrophils (1.2-6.7) 10^3/uL 2.64 Absolute Lymphocytes (1.2-3.4) 10^3/uL 1.42 Absolute Monocytes (0.1-0.8) 10^3/uL 0.46 Absolute Eosinophils (0.0-0.7) 10^3/uL 0.08 Absolute Basophils (0.0-0.2) 10^3/uL 0.03 Sodium (136-145) mmol/L 143 Potassium (3.5-5.1) mmol/L 4.0 Chloride (98-107) mmol/L 102 Carbon Dioxide (21.0-32.0) mmol/L 30.0 Anion Gap (3-11) mmol/L 11.0 BUN (7-18) mg/dL 11 Creatinine (0.55-1.02) mg/dL 0.6 Estimated GFR/1.73 m2 (mL/min/1.73m2) >= 60.00 Glucose (74-106) mg/dL 89 Calcium (8.5-10.1) mg/dL 9.5 Total Bilirubin (0.2-1.0) mg/dL 0.3 AST (15-37) U/L 133 H ALT (14-59) U/L 78 H Alkaline Phosphatase (46-116) U/L 61 Total Protein (6.4-8.2) g/dL 8.5 H Albumin (3.4-5.0) g/dL 4.4 Urine Color (Yellow) Yellow Urine Clarity (Clear) Clear Urine pH (5-8) 5.0 Ur Specific [place] (1.005-1.025) 1.010 Urine Protein (Negative) mg/dL Negative Urine Ketones (Negative) mg/dL Negative Urine Blood (Negative) Trace-intact H Urine Nitrite (Negative) Negative Urine Bilirubin (Negative) Negative Urine Urobilinogen (Up TO 0.2) EU/dL 0.2 Ur Leukocyte Esterase (Negative) Negative Urine RBC (0-2) HPF 0-2 Urine WBC (0-5) HPF 0-2 Ur Epithelial Cells (Negative) HPF Many Urine Crystals (Negative) HPF Negative Urine Bacteria (Negative) HPF Negative Urine Mucus (Negative) Negative Ur Culture Indicated? No Urine Glucose (Negative) mg/dL Negative HPI <Rosa Camacho MD - Last Filed: 12/09/20 08:38> General Mode of arrival: ambulatory . Date/Time Provider Initiated Documentation: 11/27/20 12:09 . Limitations to Documentation: no limitations . Information obtained by: patient, RN notes reviewed and old records reviewed . HPI Narrative: Sofiya Hall is a 45-year-old woman with a history of alcohol use disorder presenting to emergency department with right-sided abdominal pain. Patient reports that over the past 3 days she has noticed that her right lower back has been achy, which is not all that unusual for her. Patient reports that this morning she woke up and had significant pain in her right lateral abdomen/right pelvic area. Patient reports that pain is worse with any movement. She states pain does not radiate. Pain is sharp. She denies any other pain, fever, shortness of breath, cough, vomiting, diarrhea, constipation, dysuria, numbness, weakness, vaginal bleeding, vaginal discharge. Just finished menstrual period. Pain has been constant. No trauma, no known inciting event. Related Data Home Medications Medication Instructions Recorded Confirmed venlafaxine 75 mg PO DAILY 06/14/20 11/27/20 magnesium oxide 500 mg PO QHS #30 cap 06/18/20 11/27/20 methocarbamol 500 mg PO Q6H PRN #14 tab 11/27/20 prednisone See Rx Instructions .ROUTE 11/27/20 .COMPLEX #18 tab Previous Rx's Medication Instructions Recorded magnesium oxide 500 mg PO QHS #30 cap 06/18/20 methocarbamol 500 mg PO Q6H PRN #14 tab 11/27/20 prednisone See Rx Instructions .ROUTE 11/27/20 .COMPLEX #18 tab Allergies Allergy/AdvReac Type Severity Reaction Status Date / Time No Known Allergies Allergy Unverified 11/27/20 12:06 General Stated Complaint: Orthopedic KIERSTEN: 3 Review of Systems <Rosa Camacho MD - Last Filed: 12/09/20 08:38> Narrative: Constitutional: denies fevers Eyes: denies eye pain ENT: denies ear pain, dental pain, sore throat Cardiovascular: denies chest pain, edema Respiratory: denies SOB, cough GI: denies vomiting, diarrhea, reports abdominal pain : denies flank pain, denies dysuria MSK: denies neck pain, arthralgias, myalgias, reports right lower back pain Skin: denies rash Neuro: denies headaches, numbness, weakness PFSH <Rosa Camacho MD - Last Filed: 12/09/20 08:38> Medical History Alcohol abuse Anxiety Eczema Surgical History No significant past surgical history Family History Father Heart disease [place] at age of 68 Maternal Grandmother Cancer ovarian cancer Maternal Grandfather Cancer unknown primary Social History Smoking/Tobacco Use Status: Current every day Tobacco Type: cigarettes Smoking risk assessment performed?: Yes Alcohol Intake: current Alcohol Intake frequency: 3 or more drinks per day Alcohol type: wine, hard liquor and other Counseling given: Yes Counseling provided: provider counseling and support program Drug use: Daily Substance use type: marijuana Details: past cocaine Do you feel safe at home: Yes Do you feel safe in your relationship?: Yes Exam <Rosa Camacho MD - Last Filed: 12/09/20 08:38> Narrative Exam Narrative: Constitutional: well and [id number], pleasant, conversing normally, uncomfortable with changing position HENT: head atraumatic/normocephalic/normal inspection, mucous membranes moist Eyes: conjunctiva normal, sclera normal, pupils 3mm b/l Neck: no stridor, normal ROM, trachea midline Chest: normal inspection Resp: normal work of breathing, speaking in full sentences Cardio: normal rate, normal rhythm GI: abdomen soft, mild to moderate tenderness palpation right lower quadrant/right pelvic area, no rebound, no guarding, no other abdominal tenderness to palpation, non-distended Back: normal inspection, no rash, no lumbar spine or paraspinal tenderness to palpation, no CVA tenderness to palpation Skin: warm, dry, normal color, no rash Neuro: alert, not altered, grossly non-focal, normal tone Ext: no edema, negative straight leg test, no pain with ranging right hip Psych: normal mood, normal affect, normal behavior Course <Rosa Camacho MD - Last Filed: 12/09/20 08:38> Vital Signs Vital signs: Vital Signs Temperature 36.9 C 11/27/20 12:02 Pulse 104 H 11/27/20 12:02 Respiratory Rate 14 11/27/20 12:02 Blood Pressure 123/87 11/27/20 12:02 Pulse Oximetry 97 11/27/20 12:02 Temperature 36.9 C 11/27/20 12:02 Temperature Source Skin 11/27/20 12:02 Pulse 104 H 11/27/20 12:02 Respiratory Rate 14 11/27/20 12:02 Blood Pressure 123/87 11/27/20 12:02 Blood Pressure Position Sitting 11/27/20 12:02 Pulse Oximetry 97 11/27/20 12:02 Oxygen Delivery Method Room Air 11/27/20 12:02 Oxygen Flow Rate 0 11/27/20 12:02 Pain Level 7 11/27/20 12:02 Sign Out <Rosa Camacho MD - Last Filed: 12/09/20 08:38> Sign Out Data: Sign Out Comment: Patient signed out to Dr. Jimenez at time of shift change with pelvic ultrasound pending, pelvic ultrasound is nondiagnostic, plan for CT abdomen/pelvis. Last updated by Rosa Camacho MD at 11/27/20 16:40
--- NOTE | 2020-11-27 14:02 | NUR.NOTE ---
Patient changes into gown, sitting on side of bed, holding pressure to right lower back. Denies numbness or tingling in extremities, no loss of bowel or bladder. Gait slow but steady.Nursing Note:
--- NOTE | 2020-11-27 14:04 | NUR.NOTE ---
Saw chiropractor ; last appt before that 2-3 months ago.Nursing Note:
--- NOTE | 2020-11-27 14:15 | DI.US_ITS ---
Exam(s) US ABD PELV TRANSVAG NON-OB EXAM: US ABD PELV TRANSVAG NON-OB CLINICAL HISTORY: right pelvic pain TECHNIQUE: Ultrasound of the abdomen and pelvis was performed both transabdominal and transvaginal. COMPARISON: CT CT THORAX ABD/PEL CTA from 06/14/2020 US US ABDOMEN LIMITED from 06/14/2020 US US ABDOMEN LIMITED from 06/14/[address] THORAX ABD/PEL CTA from 06/14/2020 FINDINGS: ABDOMEN: There is no ascites evident. LIVER: Liver is again noted be hyperechoic indicating steatosis. There are no discrete focal hepatic lesions identified. GALLBLADDER/BILIARY: There are no gallstones. No gallbladder wall edema nor pericholecystic fluid. The common hepatic duct isnot dilated, measuring 3-4mm at the level of dee hepatis. PANCREAS: Pancreas appears unremarkable on today's study. No evidence of acute pancreatitis. Pancre atic duct diameter is upper normal. No obvious pancreatic mass nor pancreatic calcifications. SPLEEN: The spleen is not enlarged and there are no intrasplenic lesions evident. KIDNEYS:Kidneys exhibit normal size with no evidence of solid mass, calculus, nor hydronephrosis. No cortical cysts evident. ABDOMINAL AORTA: There is no evidence of abdominal aortic aneurysm. IVC: Normal diameter where visualized. UTERUS: Measures 7 cm length x 3.4 cm AP x 5.1 cm wide. There are no uterine fibroids.There is an IUD in the endometrial cavity. Appears to be in satisfacto ry position. Endometrial thickness measures 6-7 mm. There is no fluid in the endometrial canal. CERVIX: There are no obvious nabothian cysts. RIGHT OVARY: Measures 3 x 1.2 x 1.1 cm No significant cysts nor masses evident in the right ovary. LEFT OVARY: Measures 2.5 x 1.4 x 1.3 cm No significant cysts nor masses evident in the left ovary. CUL-DE-SAC: No free fluid evident. IMPRESSION: 1. No evidence of cholelithiasis nor dilatation of the biliary tree. 2. Hepatic steatosis again noted. Correlation with appropriate hepatic blood work recommended 3. No evidence of obvious pancreatitis on this ultrasound study. This patient had pancreatitis on pr ior CT scan listed above. 4. IUD in satisfactory position in the uterus. No other uterus nor adnexal findings. 5. No free fluid in the abdomen and pelvis. DATA REPOSITORY:
[2020-11-27] MEDS: Normal Saline 1,000 ML 1000 ML IV (14:34)
[2020-11-27 14:43] LABS: Absolute Basophil Count 0.03 10^3/uL (0.0-0.2); Absolute Eosinophil Count 0.08 10^3/uL (0.0-0.7); Absolute Lymphocyte Count 1.42 10^3/uL (1.2-3.4); Absolute Monocyte Count 0.46 10^3/uL (0.1-0.8); Absolute Neutrophil Count 2.64 10^3/uL (1.2-6.7); Basophils % 0.6; Eosinophils % 1.7; HCT 42.7 % (36.0-46.0); HGB 14.4 g/dL (11.2-15.7); Lymphocytes % 30.7; MCHC 33.7 % (32.0-36.0); MCV 97.7 fL (80-95); MPV 9.4 fL (8.0-11.0); Monocytes % 9.9; Neutrophils % 57.1; Nucleated RBC 0 %; Platelet Count 194 10^3/uL (130-400); RBC 4.37 10^6/uL (3.93-5.22); RDW 13.2 % (11.7-14.6); RDW-SD 47.6 fL; WBC 4.63 10^3/uL (4.4-10.8)
[2020-11-27 14:45] VITALS: BP 118/72; PULSE 82; RESP 16; O2SAT 100
[2020-11-27 15:11] LABS: ALT 78 U/L (14-59); AST 133 U/L (15-37); Albumin 4.4 g/dL (3.4-5.0); Alkaline Phosphatase 61 U/L (46-116); BUN 11 mg/dL (7-18); Bilirubin, Total 0.3 mg/dL (0.2-1.0); CREATININE 0.6 mg/dL (0.55-1.02); Calcium 9.5 mg/dL (8.5-10.1); Chloride 102 mmol/L (98-107); Glucose 89 mg/dL (74-106); Sodium 143 mmol/L (136-145); Total Protein 8.5 g/dL (6.4-8.2)
[2020-11-27] MEDS: HYDROmorphone 2 MG/ML VIAL 0.5 MG IVP (15:54)
--- NOTE | 2020-11-27 15:55 | NUR.NOTE ---
To DI per cart with transporterNursing Note:
[2020-11-27 16:44] VITALS: BP 120/73; PULSE 84; RESP 16; O2SAT 98
--- NOTE | 2020-11-27 16:45 | DI.CT_ITS ---
Exam(s) CT ABDOMEN PELVIS W EXAM: CT ABDOMEN PELVIS W CLINICAL HISTORY: rlq pain TECHNIQUE: Imaging Protocol: Axial computed tomography images with coronal and sagittal reformatted images were created and reviewed CONTRAST MATERIAL: Intravenous: Omnipaque 350 Contrast volume:94 mL Oral: No COMPARISON: CT CT THORAX ABD/PEL CTA from 06/14/2020 FINDINGS: ABDOMEN: Lung Bases: Normal where visualized. Liver: There is diffuse decreased attenuation of the liver consistent with fatty infiltration. No me asurable mass. Portal, Superior Mesenteric, and Splenic Veins: Unremarkable. Gallbladder and Biliary Tract: No radiodense calculus or dilation. Pancreas: Normal density, no abnormal calcifications or inflammatory process. Spleen: Normal. Adrenals: No masses seen. Kidneys: Normal size, contour and axis. Left nephrolithiasis. No hydronephrosis. No masses seen. Abdominal Aorta: Abdominal portion non-dilated. Bowel: No obstruction or bowel wall thickening. Appendix is unremarkable. There is a moderate amount of stool throughout the colon. Peritoneal Cavity: No ascites, collection or mesenteric inflammatory response. No free air. Lymph Nodes: Within normal limits. Bones: Within normal limits for the patient's age. Soft Tissues: Unremarkable. PELVIS: Bladder: Incompletely distended. No gross abnormality. Reproductive Organs: Unremarkable as visualized. There is an IUD in good position. Lymph Nodes: Within normal limits. Bones: Within normal limits for the patient's age. IMPRESSION: 1. No acute abdominal process. 2. Nonacute findings including fatty infiltration of the liver. 3. IUD is in good position. 4. Moderate amount of stool in the colon. RADIATION DOSE DELIVERED: 803.03mGy.cm Total DLP DATA REPOSITORY: All CT scans at this facility are submitted to the National Radiology Data Registry (NRDR) Dose Index Registry (DIR) with the [employer] ([employer]). RADIATION OPTIMIZATION: All CT scans at this facility use at least one of these dose optimization te chniques: automated exposure control; mA and/or kV adjustment per patient size (includes targeted exa ms where dose is matched to clinical indication); or iterative reconstruction.
[2020-11-27] MEDS: Omnipaque 350 MG/ML 100 ML BTL IJ (16:54)
--- NOTE | 2020-11-27 17:02 | NUR.NOTE ---
Patient to DI per cart with transporterNursing Note:
--- NOTE | 2020-11-27 17:12 | DI.VRAD_ITS ---
PROCEDURE INFORMATION: Exam: US Abdomen Complete Exam date and time: 11/27/2020 2:21 PM Age: 45 years old Clinical indication: Other: Mid, right sided abdominal pain; Pelvic pain TECHNIQUE: Imaging protocol: Real-time ultrasound of the abdomen with image documentation. COMPARISON: SD US ABDOMEN LIMITED 06/14/2020 12:05 PM FINDINGS: Liver: The liver is echogenic consistent with fatty infiltration. The liver is normal in size measuring 15 cm in length. Gallbladder: The gallbladder is unremarkable. There is no sonographic Gtz sign. The gallbladder wall is not thickened. There is no pericholecystic fluid. Common bile duct: There is no evidence of intrahepatic or extrahepatic biliary ductal dilatation. The common bile duct is normal measuring 4 mm. Pancreas: The visualized portions of the pancreas appear unremarkable. Right kidney: The right kidney is within normal limits measuring 10.0 cm in length. Left kidney: The left kidney is unremarkable measuring 10.1 cm in length. Spleen: The spleen is within normal limits measuring 7.6 cm in length. Aorta: The visualized portions of the aorta appeared within normal limits. Inferior vena cava: The visualized portions of the IVC appear unremarkable. IMPRESSION: Fatty infiltration of the liver. PROCEDURE INFORMATION: Exam: US Pelvis Complete, Transabdominal and US Pelvis, Transvaginal Exam date and time: 11/27/2020 2:21 PM Age: 45 years old Clinical indication: Other: Mid, right sided abdominal pain; Pelvic pain TECHNIQUE: Imaging protocol: Real-time transabdominal and transvaginal pelvic ultrasound (complete) with image documentation. Transvaginal imaging was used for better evaluation of the endometrium, adnexa, and/or cervix. COMPARISON: SD US ABDOMEN LIMITED 06/14/2020 12:05 PM FINDINGS: Uterus/cervix: Transvaginally there is an IUD in place. Transvaginally the uterus measured 7.0 x 3.4 x 5.1 cm. Transvaginally the endometrium measured 7 mm. Right adnexa: Transvaginally the right ovary measures 3.0 x 1.2 x 1.1 cm. Transvaginally there is normal vascular flow to the right ovary. Left adnexa: Transvaginally the left ovary measured 2.5 x 1.4 x 1.3 cm. Transvaginally there is normal vascular flow to the left ovary. Intraperitoneal space: Transvaginally there is no free fluid in the cul-de-sac. Urinary bladder: The transabdominal approach is limited due to a nondistended urinary bladder. The urinary bladder appeared within normal limits. IMPRESSION: IUD in place otherwise unremarkable ultrasound examination of the pelvis performed both transabdominally transvaginally. Dictated and Authenticated by: Albaro Jack MD. Ordering:SHY Lee MD
[2020-11-27] MEDS: Dexamethasone 10 MG/ML VIAL IVP (17:26)
[2020-11-27] MEDS: Ketorolac 30 MG/ML VIAL IVP (17:26)
[2020-11-27] MEDS: diazePAM 5 MG TAB PO (17:27)
[2020-11-27 17:31] VITALS: BP 124/70; PULSE 82; RESP 16; TEMP 36.3; O2SAT 97
--- NOTE | 2020-11-27 17:43 | DI.VRAD_ITS ---
PROCEDURE INFORMATION: Exam: CT Abdomen And Pelvis With Contrast Exam date and time: 11/27/2020 4:46 PM Age: 45 years old Clinical indication: Abdominal pain; Localized; Right lower quadrant (rlq); Patient HX: Rlq pain; Per PT: Since this morning TECHNIQUE: Imaging protocol: Computed tomography of the abdomen and pelvis with contrast. COMPARISON: CT THORAX ABD/PEL CTA 06/14/2020 12:00 PM FINDINGS: Lungs: The visualized lung bases are within normal limits. Heart: The visualized portions of the heart and pericardium are unremarkable. Liver: There is fatty infiltration of the liver. Gallbladder and bile ducts: The gallbladder is within normal limits. Pancreas: The pancreas is within normal limits. Spleen: The spleen is unremarkable. Adrenal glands: The adrenal glands are within normal limits. Kidneys and ureters: The kidneys are within normal limits. Stomach and bowel: There are feces within the colon which could represent some degree of constipation. Appendix: The appendix is visualized and is within normal limits. Intraperitoneal space: Unremarkable. No free air. No significant fluid collection. Vasculature: Unremarkable. No abdominal aortic aneurysm. Lymph nodes: No enlarged lymph nodes. Urinary bladder: The urinary bladder is not very distended with urine. The wall appears slightly thickened. This could be due to its under distention. Reproductive: There is an IUD within the uterus. The ovaries appear within normal limits for a patient of this age. Bones/joints: There are degenerative changes of the thoracic and lumbar spines. Soft tissues: There is umbilical jewelry. IMPRESSION: Fatty infiltration of the liver. Suspect some degree of constipation. IUD in place. Under distended urinary bladder. Dictated and Authenticated by: Albaro Jack MD. Ordering:SHY Lee MD
[2020-11-27 17:49] LABS: Bilirubin Negative (Negative); Blood Trace-intact (Negative); Clarity Clear (Clear); Glucose Negative (Negative); Ketones Negative (Negative); Leukocyte Esterase Negative (Negative); Nitrite Negative (Negative); Urobilinogen 0.2 EU/dL (Up TO 0.2)
[2020-11-27 17:57] LABS: Epithelial Cells Many HPF (Negative); RBC 0-2 HPF (0-2); WBC 0-2 HPF (0-5)
[2020-11-27 17:58] LABS: Bacteria Negative HPF (Negative); C & S Indicated? No; Crystals Negative HPF (Negative); Mucus Negative (Negative)
== END 2020-11-27 18:52 | disposition home or self-care (01) ==
PROVIDERS: Student in an Organized Health Care Education/Training Program; Emergency Provider Physician Assistant
DX: M54.5 Low back pain (principal); R10.31 Right lower quadrant pain; M25.551 Pain in right hip
CPT/HCPCS: 36415; 80053; 81025; 96361; 96374; 96375; 99285; 74177; 76700; 76830; 76856; 81003; 81015; 85025; J1100; J1885; J3490